=== PATIENT | female | born 1955 | race Caucasian/White ===

== ENCOUNTER 2017-09-23 13:41 | Inpatient (IN) | payer MEDICARE, MEDICAID ==
[~2017-09-23] VITALS: Ht 165.1 cm; Wt 67.9 kg
[~2017-09-23 13:41] MED LIST: ACET-812 PO; ADV50250 IH; ALBU18HF2 IH; CARV3.1289 PO; CLOP75TA35 PO; CYCL-1 PO; CYCL-394 PO; DIPH25CA83 PO; DOCU100C40 PO; GABA-330 PO; INSU100I12 SQ; IPRA3AMP IH; LINA5TAB4 PO; NIF150C PO; NITR0.4T48 SL; NORCO10T PO; NOVRI SQ; OMEP-84 PO; ONDA4TAB6 PO; POLY17PO10 PO; PRAV40TA PO; VENL150C50 PO
[2017-09-23 14:05] LABS: BASOPHILS # (AUTO) 0.1 X10'3 (0-0.2); BASOPHILS % (AUTO) 0.6 % (0-1); EOSINOPHILS # (AUTO) 0.1 X10'3 (0-0.9); EOSINOPHILS % (AUTO) 1.4 % (0-6); HEMATOCRIT 43.1 % (35.0-45.0); HEMOGLOBIN 14.6 g/dl (12.0-16.0); LYMPHOCYTES # (AUTO) 2.9 X10'3 (1.1-4.8); LYMPHOCYTES % (AUTO) 29.3 % (21-51); MEAN CORPUSCULAR HEMOGLOBIN 31.5 PG (27.0-31.0); MEAN CORPUSCULAR HGB CONC 33.9 % (33.0-36.5); MEAN CORPUSCULAR VOLUME 92.9 FL (78-98); MEAN PLATELET VOLUME 8.3 FL (7.4-10.4); MONOCYTES # (AUTO) 0.6 X10'3 (0-0.9); MONOCYTES % (AUTO) 5.7 % (2-12); NEUTROPHILS # (AUTO) 6.2 X10'3 (1.8-7.7); PLATELET COUNT 313 X10'3 (140-440); RED BLOOD COUNT 4.64 X10'6 (4.20-5.60); RED CELL DISTRIBUTION WIDTH 15.4 % (11.5-14.5); WHITE BLOOD COUNT 9.8 X10'3 (4.5-11.0)
[2017-09-23 14:15] LABS: PARTIAL THROMBOPLASTIN TIME 25 SECONDS (22-32); PROTHROMBIN TIME 9.9 SECONDS (9.0-12.0)
[2017-09-23 14:21] LABS: ALANINE AMINOTRANSFERASE 18 U/L (12-78); ALKALINE PHOSPHATASE 79 IU/L (46-116); ANION GAP 9 (8-16); ASPARTATE AMINO TRANSFERASE 25 U/L (10-37); BILIRUBIN,TOTAL 0.3 MG/DL (0.1-1.0); BLOOD UREA NITROGEN 18 MG/DL (7-18); BUN/CREATININE RATIO 16.4 (6.6-38.0); CALCIUM 9.2 MG/DL (8.5-10.1); CHLORIDE 105 MMOL/L (99-107); GLUCOSE 264 MG/DL (70-104); POTASSIUM 4.5 MMOL/L (3.5-5.1); SODIUM 141 MMOL/L (135-145); TOTAL PROTEIN 7.9 G/DL (6.4-8.2); eGFR 50 ML/MIN
[2017-09-23] MEDS ORDERED: aspirin 325mg tablet PO ONE (15:20)
[2017-09-23] MEDS ORDERED: nitroGLYCERIN-Tridil 50MG/D5W 250 ML IV ONE (15:20)
[2017-09-23] MEDS ORDERED: enoxaparin 100mg/ml syringe SUBCUT ONE (15:20)
[2017-09-23] MEDS ORDERED: fentaNYL/PF 50MCG/1 ML 2ML syringe IV ONE (15:35)
[2017-09-23] MEDS ORDERED: ondansetron/PF 4mg/2ml inj IV ONE (15:35)
[2017-09-23] MEDS ORDERED: albuterol 2.5 MG/3 ML nebule NEB PRN (16:15)
[2017-09-23] MEDS ORDERED: magnesium 4gm in 100ml NS 100 ML IV PRN (16:15)
[2017-09-23] MEDS ORDERED: potassium Cl 40MEQ/NS 500ml 500 ML IV PRN ×2 (16:15)
[2017-09-23] MEDS ORDERED: HYDROmorphone 1 mg/ml syringe IV PRN ×2 (16:15)
[2017-09-23] MEDS ORDERED: magnesium Cl slow-release 64mg tablet PO PRN (16:15)
[2017-09-23] MEDS ORDERED: magnesium 2GM in 50ml NS 50 ML IV PRN (16:15)
[2017-09-23] MEDS ORDERED: ondansetron/PF 4mg/2ml inj IV PRN (16:15)
[2017-09-23] MEDS ORDERED: mag hydrox/Alum hydrox/simeth 30ml oral suspension PO PRN (16:15)
[2017-09-23] MEDS ORDERED: acetaminophen 325mg tablet PO PRN (16:15)
[2017-09-23] MEDS ORDERED: magnesium hydroxide 30ml (MOM) UD suspension PO PRN (16:15)
[2017-09-23] MEDS ORDERED: potassium Cl 20 mEq SR tablet PO PRN ×2 (16:15)
[2017-09-23] MEDS ORDERED: ipratropium/albuterol 3ml nebule NEB PRN (16:15)
[2017-09-23] MEDS ORDERED: CARV3.122 PO (17:22)
[2017-09-23] MEDS ORDERED: ACET-812 PO (17:25)
[2017-09-23] MEDS ORDERED: NIT10P (17:31)
[2017-09-23] MEDS ORDERED: METF10002 PO (17:39)
[2017-09-23] MEDS ORDERED: LANTUS SQ (17:39)
[2017-09-23] MEDS ORDERED: INSU100V9 SQ (17:39)
[2017-09-23] MEDS ORDERED: BUDE10.2 (17:47)
[2017-09-23] MEDS ORDERED: BACL10TA PO (17:47)
[2017-09-23] MEDS ORDERED: FURO-150 PO (17:47)
[2017-09-23] MEDS ORDERED: LISI10TA4 PO (17:47)
[2017-09-23 19:45] VITALS: BP 121/62
[2017-09-23] MEDS: carVEDilol 3.125mg tablet PO SCH (19:50)
[2017-09-23] MEDS: gabapentin 400mg capsule PO SCH (19:50)
[2017-09-23] MEDS: normal saline 1000ml 1,000 ML IV SCH (19:51)
[2017-09-23] MEDS: enoxaparin 40mg/0.4ml syringe SUBCUT SCH (20:00)
[2017-09-23] MEDS: enoxaparin 30mg/0.3ml syringe SUBCUT SCH (20:00)
[2017-09-23] MEDS: docusate sod 100mg capsule PO SCH (20:00)
[2017-09-23 21:00] VITALS: BP 115/55
[2017-09-23] MEDS ORDERED: temazepam 15mg capsule PO PRN (21:00)
[2017-09-23] MEDS ORDERED: morphine 4 MG/ML inj SYRINge IV PRN (21:40)
[2017-09-23] MEDS: iron polysaccharide complex 150mg capsule PO SCH (22:32)
[2017-09-23 23:00] VITALS: BP 115/46
[2017-09-24] VITALS (16 sets, daily range): BP systolic 91–156; BP diastolic 33–102
[2017-09-24] MEDS ORDERED: dextrose ORAL solution 15 GM/59 ML bottle PO PRN ×2 (04:20)
[2017-09-24] MEDS ORDERED: MESSAGE TO PHARMACY PO ONE (04:20)
[2017-09-24] MEDS ORDERED: glucagon, human recombinant 1mg kit SUBCUT PRN (04:20)
[2017-09-24] MEDS ORDERED: dextrose 50%-water 50ml dispensing syringe IV PRN ×2 (04:20)
[2017-09-24] MEDS: normal saline 1000ml 1,000 ML IV SCH ×3 (05:31→15:21)
[2017-09-24 05:35] LABS: BASOPHILS # (AUTO) 0.1 X10'3 (0-0.2); BASOPHILS % (AUTO) 0.5 % (0-1); EOSINOPHILS # (AUTO) 0.2 X10'3 (0-0.9); EOSINOPHILS % (AUTO) 1.8 % (0-6); HEMATOCRIT 36.9 % (35.0-45.0); HEMOGLOBIN 12.5 g/dl (12.0-16.0); LYMPHOCYTES # (AUTO) 3.9 X10'3 (1.1-4.8); LYMPHOCYTES % (AUTO) 40.6 % (21-51); MEAN CORPUSCULAR HEMOGLOBIN 31.2 PG (27.0-31.0); MEAN CORPUSCULAR HGB CONC 33.8 % (33.0-36.5); MEAN CORPUSCULAR VOLUME 92.3 FL (78-98); MEAN PLATELET VOLUME 8.3 FL (7.4-10.4); MONOCYTES # (AUTO) 0.8 X10'3 (0-0.9); MONOCYTES % (AUTO) 8.3 % (2-12); NEUTROPHILS # (AUTO) 4.7 X10'3 (1.8-7.7); NEUTROPHILS % (AUTO) 48.8 % (42-75); PLATELET COUNT 268 X10'3 (140-440); RED CELL DISTRIBUTION WIDTH 15.1 % (11.5-14.5); WHITE BLOOD COUNT 9.6 X10'3 (4.5-11.0)
[2017-09-24 06:19] LABS: ALANINE AMINOTRANSFERASE 18 U/L (12-78); ALBUMIN 3.2 G/DL (3.4-5.0); ALKALINE PHOSPHATASE 57 IU/L (46-116); ANION GAP 9 (8-16); ASPARTATE AMINO TRANSFERASE 60 U/L (10-37); BILIRUBIN,TOTAL 0.3 MG/DL (0.1-1.0); BLOOD UREA NITROGEN 16 MG/DL (7-18); BUN/CREATININE RATIO 15.1 (6.6-38.0); CALCIUM 8.4 MG/DL (8.5-10.1); CHLORIDE 108 MMOL/L (99-107); CHOL/HDL RATIO 4.5 (0.00-4.99); CHOLESTEROL 143 MG/DL (0-200); CREATININE 1.06 MG/DL (0.40-0.90); GLUCOSE 175 MG/DL (70-104); HDL CHOLESTEROL 32 MG/DL (35-60); LDL CHOLESTEROL 94 MG/DL (50-100); MAGNESIUM 1.9 MG/DL (1.5-2.4); POTASSIUM 4.4 MMOL/L (3.5-5.1); SODIUM 142 MMOL/L (135-145); TOTAL CARBON DIOXIDE 25.5 MMOL/L (24-32); TOTAL PROTEIN 6.5 G/DL (6.4-8.2); TRIGLYCERIDES 154 MG/DL (20-135); eGFR 52 ML/MIN
[2017-09-24] MEDS: pantoprazole 40mg Tablet.DR PO SCH (07:17)
[2017-09-24] MEDS: gabapentin 400mg capsule PO SCH ×2 (07:17→19:05)
[2017-09-24] MEDS: atorvastatin 10mg tablet PO SCH (07:17)
[2017-09-24] MEDS: iron polysaccharide complex 150mg capsule PO SCH ×2 (07:18→19:05)
[2017-09-24] MEDS: carVEDilol 3.125mg tablet PO SCH ×2 (07:18→19:05)
[2017-09-24] MEDS: linagliptin 5mg tablet PO SCH (07:19)
[2017-09-24] MEDS: venlafaxine XR 75mg capsule (Q24H) PO SCH (07:19)
[2017-09-24] MEDS: enoxaparin 40mg/0.4ml syringe SUBCUT SCH ×2 (07:20→19:06)
[2017-09-24] MEDS: enoxaparin 30mg/0.3ml syringe SUBCUT SCH ×2 (07:20→19:06)
[2017-09-24] MEDS: clopidogrel 75mg tablet PO SCH (07:20)
[2017-09-24] MEDS: docusate sod 100mg capsule PO SCH ×2 (07:20→20:00)
[2017-09-24] MEDS: K and/or MAG REPLACEMENT MC SCH (07:20)
[2017-09-24] MEDS ORDERED: heparin 1,000unit/ml 10ml vial 10 ML ONE (07:34)
[2017-09-24] MEDS ORDERED: iohexol 350MG/ML 100ml bottle IV ONE (07:34)
[2017-09-24] MEDS ORDERED: fentaNYL/PF 50MCG/1 ML 2ML syringe ONE (07:34)
[2017-09-24] MEDS ORDERED: midazolam 2 mg/2 ml injection ONE (07:34)
[2017-09-24] MEDS ORDERED: LIDOcaine 1%/PF (10mg/ml) 5ml vial ONE ×2 (07:34)
[2017-09-24] MEDS ORDERED: iohexol 350 MG/ML 50ML vial IV ONE ×2 (07:35→08:16)
[2017-09-24] MEDS ORDERED: ondansetron/PF 4mg/2ml inj ONE (08:46)
[2017-09-24] MEDS ORDERED: OXAZEpam 15mg capsule PO PRN (09:50)
[2017-09-24] MEDS ORDERED: nitroGLYCERIN 0.4mg SUBLingual tab SL PRN (09:50)
[2017-09-24] MEDS ORDERED: proCHLORperazine 10 MG/2 ml inj IV PRN (09:50)
[2017-09-24] MEDS ORDERED: ondansetron/PF 4mg/2ml inj IV PRN (09:50)
[2017-09-24] MEDS ORDERED: HYDROcodone/acetaminophen 5mg/325mg tablet PO PRN (09:50)
[2017-09-24] MEDS ORDERED: normal saline 1000ml 1,000 ML IV SCH (10:00)
[2017-09-24] MEDS: insulin Lispro (HumaLOG) vial - multi-dose SQ SCH ×2 (13:20→19:12)
[2017-09-24] MEDS: HYDROcodone/acetaminophen 10/325mg tab PO PRN (13:26)
[2017-09-24] MEDS ORDERED: insulin glargine (Lantus) pen - multi-dose SQ SCH (21:00)
[2017-09-25 03:00] VITALS: BP 107/51
[2017-09-25 06:00] VITALS: BP 95/41
[2017-09-25 06:31] LABS: BASOPHILS # (AUTO) 0.2 X10'3 (0-0.2); BASOPHILS % (AUTO) 1.6 % (0-1); EOSINOPHILS # (AUTO) 0.1 X10'3 (0-0.9); EOSINOPHILS % (AUTO) 1.4 % (0-6); HEMATOCRIT 34.4 % (35.0-45.0); HEMOGLOBIN 11.6 g/dl (12.0-16.0); LYMPHOCYTES # (AUTO) 2.8 X10'3 (1.1-4.8); LYMPHOCYTES % (AUTO) 29.7 % (21-51); MEAN CORPUSCULAR HEMOGLOBIN 31.2 PG (27.0-31.0); MEAN CORPUSCULAR HGB CONC 33.8 % (33.0-36.5); MEAN CORPUSCULAR VOLUME 92.5 FL (78-98); MEAN PLATELET VOLUME 8.1 FL (7.4-10.4); MONOCYTES # (AUTO) 0.7 X10'3 (0-0.9); NEUTROPHILS # (AUTO) 5.8 X10'3 (1.8-7.7); NEUTROPHILS % (AUTO) 60.3 % (42-75); PLATELET COUNT 228 X10'3 (140-440); RED BLOOD COUNT 3.72 X10'6 (4.20-5.60); RED CELL DISTRIBUTION WIDTH 14.9 % (11.5-14.5); WHITE BLOOD COUNT 9.6 X10'3 (4.5-11.0)
[2017-09-25 06:44] LABS: ALANINE AMINOTRANSFERASE 22 U/L (12-78); ALBUMIN 2.9 G/DL (3.4-5.0); ALKALINE PHOSPHATASE 51 IU/L (46-116); ANION GAP 7 (8-16); ASPARTATE AMINO TRANSFERASE 25 U/L (10-37); BILIRUBIN,TOTAL 0.5 MG/DL (0.1-1.0); BLOOD UREA NITROGEN 14 MG/DL (7-18); BUN/CREATININE RATIO 12.6 (6.6-38.0); CALCIUM 8.1 MG/DL (8.5-10.1); CHLORIDE 106 MMOL/L (99-107); CREATININE 1.11 MG/DL (0.40-0.90); GLUCOSE 128 MG/DL (70-104); MAGNESIUM 1.7 MG/DL (1.5-2.4); POTASSIUM 4.6 MMOL/L (3.5-5.1); SODIUM 139 MMOL/L (135-145); TOTAL CARBON DIOXIDE 25.8 MMOL/L (24-32); TOTAL PROTEIN 5.9 G/DL (6.4-8.2); eGFR 50 ML/MIN
[2017-09-25] MEDS: K and/or MAG REPLACEMENT MC SCH (08:00)
[2017-09-25] MEDS: enoxaparin 30mg/0.3ml syringe SUBCUT SCH (08:00)
[2017-09-25] MEDS: enoxaparin 40mg/0.4ml syringe SUBCUT SCH (08:00)
[2017-09-25] MEDS: atorvastatin 10mg tablet PO SCH (09:13)
[2017-09-25] MEDS: docusate sod 100mg capsule PO SCH (09:14)
[2017-09-25] MEDS: clopidogrel 75mg tablet PO SCH (09:14)
[2017-09-25] MEDS: venlafaxine XR 75mg capsule (Q24H) PO SCH (09:14)
[2017-09-25] MEDS: linagliptin 5mg tablet PO SCH (09:15)
[2017-09-25] MEDS: pantoprazole 40mg Tablet.DR PO SCH (09:15)
[2017-09-25] MEDS: HYDROcodone/acetaminophen 10/325mg tab PO PRN (09:17)
[2017-09-25] MEDS: gabapentin 400mg capsule PO SCH (09:17)
[2017-09-25] MEDS: iron polysaccharide complex 150mg capsule PO SCH (09:23)
[2017-09-25] MEDS: carVEDilol 3.125mg tablet PO SCH (09:23)
[2017-09-25 11:00] VITALS: BP 99/53
[2017-09-25 15:00] VITALS: BP 94/49
[2017-09-25] MEDS ORDERED: ACET650T78 PO (17:04)
== END 2017-09-25 18:00 | disposition home or self-care (01) | DRG 282 ==
LOC: ER 13:42 → ED HOLD 16:11 → CMPBEDREQ 19:36 → PCU 3S 19:37
PROVIDERS: ADMIT Internal Medicine; ATTEND Internal Medicine
PROC: 4A023N7 Measurement of Cardiac Sampling and Pressure, Left Heart, Percutaneous Approach (ICD-10-PCS; principal; 2017-09-24)
PROC: B2111ZZ Fluoroscopy of Multiple Coronary Arteries using Low Osmolar Contrast (ICD-10-PCS; 2017-09-24)
PROC: B2151ZZ Fluoroscopy of Left Heart using Low Osmolar Contrast (ICD-10-PCS; 2017-09-24)
PROC: B2181ZZ Fluoroscopy of Left Internal Mammary Bypass Graft using Low Osmolar Contrast (ICD-10-PCS; 2017-09-24)
PROC: B2131ZZ Fluoroscopy of Multiple Coronary Artery Bypass Grafts using Low Osmolar Contrast (ICD-10-PCS; 2017-09-24)
DX: I21.4 Non-ST elevation (NSTEMI) myocardial infarction (principal); E11.40 Type 2 diabetes mellitus with diabetic neuropathy, unspecified; E11.65 Type 2 diabetes mellitus with hyperglycemia; I50.9 Heart failure, unspecified; J44.9 Chronic obstructive pulmonary disease, unspecified; I25.10 Atherosclerotic heart disease of native coronary artery without angina pectoris; K21.9 Gastro-esophageal reflux disease without esophagitis; D64.9 Anemia, unspecified; E78.00 Pure hypercholesterolemia, unspecified; E78.5 Hyperlipidemia, unspecified; F32.9 Major depressive disorder, single episode, unspecified; G89.29 Other chronic pain; I11.0 Hypertensive heart disease with heart failure; I08.1 Rheumatic disorders of both mitral and tricuspid valves; N28.9 Disorder of kidney and ureter, unspecified; F17.210 Nicotine dependence, cigarettes, uncomplicated; Z98.1 Arthrodesis status; Z95.1 Presence of aortocoronary bypass graft; Z90.49 Acquired absence of other specified parts of digestive tract; Z79.02 Long term (current) use of antithrombotics/antiplatelets; Z79.4 Long term (current) use of insulin; Z88.6 Allergy status to analgesic agent; Z88.8 Allergy status to other drugs, medicaments and biological substances; Z86.718 Personal history of other venous thrombosis and embolism; Z82.49 Family history of ischemic heart disease and other diseases of the circulatory system; Z83.3 Family history of diabetes mellitus
CPT/HCPCS: 36415; 71046; 80053; 80061; 82948; 83036; 83735; 84484; 85025; 85610; 85730; 87070; 93005; 93306; 93458; 94640; 94760; 96372; 96374; 96375; 99152; 99153; 99285; A4620; A6257; C1760; C1769; J0780; J1644; J1650; J1815; J2001; J2250; J2405; J3010; J3490; J7030; Q9967

== ENCOUNTER 2018-11-25 14:15 | Emergency (ER) | payer MEDICARE, MEDICAID ==
[~2018-11-25] VITALS: Ht 162.6 cm; Wt 72.7 kg
[~2018-11-25 14:15] MED LIST changes: -ACET-812 PO; +ACET650T78 PO; -ADV50250 IH; +BUDE10.2; +CARV3.122 PO; -CARV3.1289 PO; -CYCL-1 PO; -CYCL-394 PO; -DIPH25CA83 PO; -DOCU100C40 PO; +FURO-150 PO; -INSU100I12 SQ; +INSU100V9 SQ; -IPRA3AMP IH; +IPRA3AMP31 IH; +LANTUS SQ; +LISI10TA4 PO; +METF-438 PO; -NIF150C PO; +NIT10P; -ONDA4TAB6 PO; -POLY17PO10 PO
[2018-11-25 15:37] LABS: BASOPHILS # (AUTO) 0.1 X10'3 (0-0.2); BASOPHILS % (AUTO) 1.3 % (0-1); EOSINOPHILS # (AUTO) 0.1 X10'3 (0-0.9); EOSINOPHILS % (AUTO) 0.6 % (0-6); HEMATOCRIT 39.6 % (35.0-45.0); HEMOGLOBIN 13.2 g/dl (12.0-16.0); LYMPHOCYTES # (AUTO) 3.2 X10'3 (1.1-4.8); LYMPHOCYTES % (AUTO) 29.2 % (21-51); MEAN CORPUSCULAR HEMOGLOBIN 32.9 PG (27.0-31.0); MEAN CORPUSCULAR HGB CONC 33.4 g/dL (33.0-36.5); MEAN CORPUSCULAR VOLUME 98.4 FL (78-98); MEAN PLATELET VOLUME 8.3 FL (7.4-10.4); MONOCYTES # (AUTO) 0.7 X10'3 (0-0.9); MONOCYTES % (AUTO) 6.8 % (2-12); NEUTROPHILS # (AUTO) 6.8 X10'3 (1.8-7.7); NEUTROPHILS % (AUTO) 62.1 % (42-75); PLATELET COUNT 309 X10'3 (140-440); RED BLOOD COUNT 4.02 X10'6 (4.20-5.60); RED CELL DISTRIBUTION WIDTH 14.8 % (11.5-14.5); WHITE BLOOD COUNT 10.9 X10'3 (4.5-11.0)
[2018-11-25 15:43] LABS: ALANINE AMINOTRANSFERASE 31 U/L (12-78); ALBUMIN 3.1 G/DL (3.4-5.0); ALBUMIN/GLOBULIN RATIO 0.9 (1.1-1.5); ALKALINE PHOSPHATASE 90 IU/L (46-116); ANION GAP 6 (8-16); ASPARTATE AMINO TRANSFERASE 14 U/L (10-37); BILIRUBIN,TOTAL 0.4 MG/DL (0.1-1.0); BLOOD UREA NITROGEN 20 MG/DL (7-18); BUN/CREATININE RATIO 18.9 (6.6-38.0); CALCIUM 9.3 MG/DL (8.5-10.1); CHLORIDE 104 MMOL/L (99-107); CREATININE 1.06 MG/DL (0.40-0.90); GLUCOSE 146 MG/DL (70-104); POTASSIUM 3.7 MMOL/L (3.5-5.1); SODIUM 138 MMOL/L (135-145); TOTAL CARBON DIOXIDE 28.5 MMOL/L (24-32); TOTAL PROTEIN 6.7 G/DL (6.4-8.2); eGFR 52 ML/MIN
[2018-11-25 15:47] LABS: PARTIAL THROMBOPLASTIN TIME 24 SECONDS (22-32); PROTHROMBIN TIME 10.4 SECONDS (9.0-12.0)
[2018-11-25] MEDS ORDERED: ipratropium/albuterol 3ml nebule NEB ONE (18:15)
[2018-11-25] MEDS ORDERED: furosemide 10 MG/1 ML 10ml inj IV ONE (18:15)
[2018-11-25] MEDS ORDERED: albuterol 2.5 MG/3 ML nebule NEB ONE (18:15)
[2018-11-25] MEDS ORDERED: methylPREDNISolone sod succ 125mg/2ml vial IV ONE (18:15)
--- NOTE | 2018-11-25 19:27 | NUR ---
respiratory therapy in room and giving albuterol and atrovent nebulizer
--- NOTE | 2018-11-25 19:29 | NUR ---
patient still smokes about half a pack a day
[2018-11-25] MEDS ORDERED: FURO-150 PO (19:49)
[2018-11-25] MEDS ORDERED: PRED20TA PO (19:49)
[2018-11-25] MEDS ORDERED: ALBU18HF2 INH (19:49)
[2018-11-25 20:19] VITALS: BP 141/87
== END 2018-11-25 20:26 | disposition home or self-care (01) ==
LOC: ER 14:16
DX: J44.1 Chronic obstructive pulmonary disease with (acute) exacerbation (principal); I50.9 Heart failure, unspecified; I11.0 Hypertensive heart disease with heart failure; I25.10 Atherosclerotic heart disease of native coronary artery without angina pectoris; E78.00 Pure hypercholesterolemia, unspecified; J44.9 Chronic obstructive pulmonary disease, unspecified; E11.9 Type 2 diabetes mellitus without complications; G89.29 Other chronic pain; F17.200 Nicotine dependence, unspecified, uncomplicated; Z90.49 Acquired absence of other specified parts of digestive tract; Z95.0 Presence of cardiac pacemaker; Z98.890 Other specified postprocedural states; Z88.6 Allergy status to analgesic agent; Z88.5 Allergy status to narcotic agent; Z79.4 Long term (current) use of insulin; Z79.899 Other long term (current) drug therapy
CPT/HCPCS: 36415; 71045; 80053; 84484; 85025; 85610; 85730; 93005; 94640; 94760; 96374; 96375; 99284; J1940; J2930

== ENCOUNTER 2018-11-27 12:00 | Inpatient (IN) | payer MEDICARE, MEDICAID ==
[~2018-11-27] VITALS: Ht 162.6 cm; Wt 72.0 kg
[~2018-11-27 12:00] MED LIST changes: +ALBU18HF2 INH; +PRED20TA PO
--- NOTE | 2018-11-27 12:44 | NUR ---
dr. wright at bedside.
[2018-11-27] MEDS ORDERED: ipratropium/albuterol 3ml nebule NEB ONE (12:50)
[2018-11-27] MEDS ORDERED: levoFLOXACIN-Levaquin 750MG/D5 150 ML IV ONE (12:50)
--- NOTE | 2018-11-27 12:58 | NUR ---
SPUTUM SAMPLE SENT TO LAB.
[2018-11-27] MEDS ORDERED: methylPREDNISolone sod succ 125mg/2ml vial IV ONE (13:00)
[2018-11-27 13:26] LABS: BASOPHILS # (AUTO) 0.1 X10'3 (0-0.2); BASOPHILS % (AUTO) 0.6 % (0-1); EOSINOPHILS % (AUTO) 0.2 % (0-6); HEMOGLOBIN 14.2 g/dl (12.0-16.0); LYMPHOCYTES # (AUTO) 3.2 X10'3 (1.1-4.8); MEAN CORPUSCULAR HEMOGLOBIN 32.7 PG (27.0-31.0); MEAN CORPUSCULAR HGB CONC 33.1 g/dL (33.0-36.5); MEAN CORPUSCULAR VOLUME 98.9 FL (78-98); MEAN PLATELET VOLUME 8.2 FL (7.4-10.4); MONOCYTES % (AUTO) 5.1 % (2-12); NEUTROPHILS # (AUTO) 15.8 X10'3 (1.8-7.7); NEUTROPHILS % (AUTO) 78.1 % (42-75); PLATELET COUNT 336 X10'3 (140-440); RED BLOOD COUNT 4.34 X10'6 (4.20-5.60); RED CELL DISTRIBUTION WIDTH 14.7 % (11.5-14.5); WHITE BLOOD COUNT 20.2 X10'3 (4.5-11.0)
[2018-11-27 13:39] LABS: PARTIAL THROMBOPLASTIN TIME 23 SECONDS (22-32)
[2018-11-27 13:45] LABS: ALANINE AMINOTRANSFERASE 51 U/L (12-78); ALBUMIN 3.6 G/DL (3.4-5.0); ALBUMIN/GLOBULIN RATIO 0.9 (1.1-1.5); ALKALINE PHOSPHATASE 99 IU/L (46-116); ANION GAP 7 (8-16); ASPARTATE AMINO TRANSFERASE 37 U/L (10-37); BILIRUBIN,TOTAL 0.6 MG/DL (0.1-1.0); BLOOD UREA NITROGEN 22 MG/DL (7-18); BUN/CREATININE RATIO 18.6 (6.6-38.0); CALCIUM 9.7 MG/DL (8.5-10.1); CHLORIDE 102 MMOL/L (99-107); CREATININE 1.18 MG/DL (0.40-0.90); GLUCOSE 359 MG/DL (70-104); LIPASE 188 U/L (73-393); POTASSIUM 4.2 MMOL/L (3.5-5.1); SODIUM 138 MMOL/L (135-145); TOTAL CARBON DIOXIDE 29.3 MMOL/L (24-32); TOTAL PROTEIN 7.5 G/DL (6.4-8.2); eGFR 46 ML/MIN
[2018-11-27 14:11] LABS: URINE HCG NEGATIVE (NEG)
[2018-11-27 14:13] LABS: CLARITY,URINE CLEAR (Clear); COLOR,URINE YELLOW (Yellow); GLUCOSE, URINE >=1000 mg/dl (Neg); KETONES,URINE NEGATIVE (Neg); LEUKOCYTE ESTERASE ,URINE NEGATIVE (Neg); NITRITES, URINE NEGATIVE (Neg); OCCULT BLOOD,URINE TRACE-INTACT (Neg); PROTEIN,URINE 100 mg/dl (Neg); UROBILINOGEN,URINE 0.2 E.U/dL (0.2-1.0)
[2018-11-27 14:16] LABS: UA COLLECTION TYPE VOIDED
[2018-11-27] MEDS ORDERED: ondansetron/PF 4mg/2ml inj IV ONE (14:25)
[2018-11-27 14:35] LABS: BACTERIA,URINE FEW /HPF (Neg); RBC,URINE NONE SEEN /HPF (0-2); SQUAMOUS EPITHELIAL CELL,UR MODERATE /LPF (FEW); WBC,URINE 0-4 /HPF (0-4)
[2018-11-27 14:36] LABS: YEAST MODERATE /HPF (NEGATIVE)
[2018-11-27] MEDS ORDERED: diphenhydrAMINE 50 mg/ml inj IV ONE (14:55)
--- NOTE | 2018-11-27 14:56 | NUR ---
Pt has localized redness and itching above PIV site. Levaquin stopped and benadryl IVP ordered by LLUVIA.
[2018-11-27] MEDS ORDERED: CefTRIAXone/D5W-Rocephin 1gm 50 ML IV ONE (15:00)
[2018-11-27] MEDS ORDERED: acetaminophen 325mg tablet PO PRN (15:40)
[2018-11-27] MEDS ORDERED: potassium Cl 40MEQ/NS 500ml 500 ML IV PRN ×2 (15:40)
[2018-11-27] MEDS ORDERED: magnesium 4gm in 100ml NS 100 ML IV PRN (15:40)
[2018-11-27] MEDS: K and/or MAG REPLACEMENT MC SCH (15:40)
[2018-11-27] MEDS ORDERED: magnesium Cl slow-release 64mg tablet PO PRN (15:40)
[2018-11-27] MEDS ORDERED: magnesium 2GM in 50ml NS 50 ML IV PRN (15:40)
[2018-11-27] MEDS ORDERED: potassium Cl 20 mEq SR tablet PO PRN ×2 (15:40)
[2018-11-27] MEDS ORDERED: ondansetron/PF 4mg/2ml inj IV PRN (15:40)
[2018-11-27] MEDS ORDERED: mag hydrox/Alum hydrox/simeth 30ml oral suspension PO PRN (15:40)
[2018-11-27] MEDS ORDERED: guaiFENesin 200 MG/10 ML oral syrup UD cup PO PRN (15:45)
[2018-11-27] MEDS ORDERED: dextrose ORAL solution 15 GM/59 ML bottle PO PRN (15:50)
[2018-11-27] MEDS ORDERED: glucagon, human recombinant 1mg kit SUBCUT PRN (15:50)
[2018-11-27] MEDS ORDERED: dextrose 50%-water 50ml dispensing syringe IV PRN ×2 (15:50)
[2018-11-27] MEDS ORDERED: MESSAGE TO PHARMACY PO ONE (15:50)
[2018-11-27 16:24] LABS: HEMOGLOBIN A1C 9.6 % (4.5-6.2)
[2018-11-27] MEDS: pantoprazole 40mg Tablet.DR PO SCH (16:32)
[2018-11-27] MEDS: clopidogrel 75mg tablet PO SCH (16:32)
[2018-11-27] MEDS: furosemide 20 MG/2 ML vial IV SCH ×2 (16:33→21:59)
[2018-11-27] MEDS: azithromycin/NS 500mg/250ml 250 ML IV SCH (16:37)
[2018-11-27] MEDS: nitroGLYCERIN 0.2mg/hour patch TD SCH (16:38)
--- NOTE | 2018-11-27 17:00 | NUR ---
biometrics technician at bedside for study as ordered.
[2018-11-27] MEDS ORDERED: OMEP40CA37 PO (17:48)
[2018-11-27] MEDS ORDERED: POTA10CA44 PO (17:48)
[2018-11-27] MEDS ORDERED: METR-159 PO (17:48)
[2018-11-27] MEDS ORDERED: HYDR-4353 PO (17:48)
[2018-11-27] MEDS ORDERED: BACL10TA PO (17:48)
[2018-11-27 18:00] VITALS: BP 125/73
[2018-11-27] MEDS: ipratropium/albuterol 3ml nebule NEB SCH ×2 (19:09→23:04)
[2018-11-27] MEDS: insulin Lispro (HumaLOG) vial - multi-dose SQ SCH ×2 (19:51→22:10)
[2018-11-27] MEDS ORDERED: insulin glargine (Lantus) pen - multi-dose SQ SCH (21:00)
[2018-11-27] MEDS: docusate sod 100mg capsule PO SCH (21:59)
[2018-11-27] MEDS: metoprolol tartrate 12.5mg (1/2 tablet) PO SCH (21:59)
[2018-11-27] MEDS: methylPREDNISolone sod succ 125mg/2ml vial IV SCH (22:01)
[2018-11-27] MEDS: heparin, porcine 5000 units/ml vial SQ SCH (22:06)
[2018-11-28] VITALS: BP 132/53
[2018-11-28] MEDS: HYDROcodone/acetaminophen 5mg/325mg tablet PO PRN ×2 (00:26→17:00)
[2018-11-28] MEDS: ipratropium/albuterol 3ml nebule NEB SCH ×6 (03:32→23:21)
[2018-11-28] MEDS: methylPREDNISolone sod succ 125mg/2ml vial IV SCH ×3 (03:42→17:00)
[2018-11-28 05:34] LABS: BASOPHILS % (AUTO) 0 % (0-1); EOSINOPHILS % (AUTO) 0 % (0-6); HEMATOCRIT 37.9 % (35.0-45.0); HEMOGLOBIN 12.8 g/dl (12.0-16.0); LYMPHOCYTES # (AUTO) 1.1 X10'3 (1.1-4.8); MEAN CORPUSCULAR HEMOGLOBIN 33.2 PG (27.0-31.0); MEAN CORPUSCULAR HGB CONC 33.6 g/dL (33.0-36.5); MEAN CORPUSCULAR VOLUME 98.8 FL (78-98); MEAN PLATELET VOLUME 8.5 FL (7.4-10.4); MONOCYTES # (AUTO) 0.2 X10'3 (0-0.9); MONOCYTES % (AUTO) 1.5 % (2-12); NEUTROPHILS # (AUTO) 13.8 X10'3 (1.8-7.7); NEUTROPHILS % (AUTO) 91.5 % (42-75); PLATELET COUNT 278 X10'3 (140-440); RED BLOOD COUNT 3.84 X10'6 (4.20-5.60); WHITE BLOOD COUNT 15.1 X10'3 (4.5-11.0)
[2018-11-28 05:39] LABS: ALBUMIN 3.2 G/DL (3.4-5.0); ANION GAP 8 (8-16); BLOOD UREA NITROGEN 29 MG/DL (7-18); BUN/CREATININE RATIO 21.3 (6.6-38.0); CHLORIDE 98 MMOL/L (99-107); CREATININE 1.36 MG/DL (0.40-0.90); GLUCOSE 399 MG/DL (70-104); MAGNESIUM 1.7 MG/DL (1.5-2.4); POTASSIUM 4.2 MMOL/L (3.5-5.1); SODIUM 133 MMOL/L (135-145); TOTAL CARBON DIOXIDE 26.6 MMOL/L (24-32); eGFR 39 ML/MIN
--- NOTE | 2018-11-28 06:52 | NUR ---
Problems reprioritized. Patient report given, questions answered & plan of care reviewed with HAILEY MEJIA.
[2018-11-28 07:00] VITALS: BP 146/70
[2018-11-28] MEDS ORDERED: lisinopril 2.5mg tablet PO SCH (08:00)
[2018-11-28] MEDS: K and/or MAG REPLACEMENT MC SCH (08:00)
[2018-11-28] MEDS: pantoprazole 40mg Tablet.DR PO SCH (09:13)
[2018-11-28] MEDS: docusate sod 100mg capsule PO SCH ×2 (09:13→20:29)
[2018-11-28] MEDS: metoprolol tartrate 12.5mg (1/2 tablet) PO SCH (09:13)
[2018-11-28] MEDS: clopidogrel 75mg tablet PO SCH (09:13)
[2018-11-28] MEDS: heparin, porcine 5000 units/ml vial SQ SCH ×2 (09:14→20:33)
[2018-11-28] MEDS: CefTRIAXone/D5W-Rocephin 1gm 50 ML IV SCH (09:15)
[2018-11-28] MEDS: nicotine 21mg patch - 24 hr TD SCH (09:15)
[2018-11-28] MEDS: furosemide 20 MG/2 ML vial IV SCH ×2 (09:15→20:34)
[2018-11-28] MEDS: insulin Lispro (HumaLOG) vial - multi-dose SQ SCH ×3 (10:46→20:45)
[2018-11-28] MEDS ORDERED: ipratropium/albuterol 3ml nebule NEB PRN (10:50)
[2018-11-28] MEDS ORDERED: nitroGLYCERIN 0.4mg SUBLingual tab SL PRN (10:50)
[2018-11-28 11:00] VITALS: BP 130/67
[2018-11-28] MEDS: venlafaxine XR 75mg capsule (Q24H) PO SCH (12:28)
[2018-11-28] MEDS: insulin glargine (Lantus) pen - multi-dose SQ SCH ×2 (12:32→20:47)
--- NOTE | 2018-11-28 15:13 | NUR ---
DM Consult: Pt admit w/ acute COPD exacerbation and PNA hx T2DM A1C 9.6 and heart failure EF 35-40%. Pt seen by RD for written/verbal DM ed w/ RD contact information provided. GLU 483 started on solumedrol w/ Lantus started one time at lunch and to start HS today per RN. PO 75% avg heart healthy/carb controlled diet meeting needs. LBM 11/27. Will continue to monitor. Rec: 1. continue heart healthy/carb controlled diet 2. monitor for ONS needs 3. wt per rx Addendum: 11/28/18 at [address] Amended: Links added.
[2018-11-28] MEDS: azithromycin/NS 500mg/250ml 250 ML IV SCH (17:00)
[2018-11-28] MEDS: nitroGLYCERIN 0.2mg/hour patch TD SCH (17:00)
--- NOTE | 2018-11-28 18:37 | NUR ---
Problems reprioritized. Patient report given, questions answered & plan of care reviewed with vicky walsh.
--- NOTE | 2018-11-28 18:45 | NUR ---
Patient in room [facility]FFANY 360. I have received report from Felicity MEJIA and had the opportunity to ask questions and assume patient care. Pt sitting up in bed with two guests at bedside. No signs of distress, will continue to monitor.
[2018-11-28 20:00] VITALS: BP 105/47
[2018-11-28] MEDS: gabapentin 400mg capsule PO SCH (20:30)
[2018-11-28] MEDS: lactobacillus rhamnosus 10,000 MMU CELLS/CAPSULE PO SCH (20:30)
[2018-11-28] MEDS: carVEDilol 3.125mg tablet PO SCH (20:30)
[2018-11-28 23:37] VITALS: BP 114/56
[2018-11-29] MEDS: methylPREDNISolone sod succ 125mg/2ml vial IV SCH ×3 (01:01→15:26)
[2018-11-29] MEDS: HYDROcodone/acetaminophen 5mg/325mg tablet PO PRN ×3 (01:01→20:54)
[2018-11-29] MEDS: ipratropium/albuterol 3ml nebule NEB SCH ×5 (03:23→20:42)
[2018-11-29 06:18] LABS: BASOPHILS % (AUTO) 0 % (0-1); EOSINOPHILS % (AUTO) 0 % (0-6); HEMATOCRIT 39.5 % (35.0-45.0); HEMOGLOBIN 13.1 g/dl (12.0-16.0); LYMPHOCYTES # (AUTO) 1.6 X10'3 (1.1-4.8); LYMPHOCYTES % (AUTO) 7.7 % (21-51); MEAN CORPUSCULAR HEMOGLOBIN 32.6 PG (27.0-31.0); MEAN CORPUSCULAR HGB CONC 33.1 g/dL (33.0-36.5); MEAN CORPUSCULAR VOLUME 98.6 FL (78-98); MEAN PLATELET VOLUME 8.3 FL (7.4-10.4); MONOCYTES # (AUTO) 0.5 X10'3 (0-0.9); MONOCYTES % (AUTO) 2.4 % (2-12); NEUTROPHILS # (AUTO) 18.2 X10'3 (1.8-7.7); NEUTROPHILS % (AUTO) 89.9 % (42-75); PLATELET COUNT 315 X10'3 (140-440); RED CELL DISTRIBUTION WIDTH 14.8 % (11.5-14.5); WHITE BLOOD COUNT 20.2 X10'3 (4.5-11.0)
--- NOTE | 2018-11-29 06:25 | NUR ---
Patient in room [facility]FF[facility] 360. I have received report from Bindu MEJIA and had the opportunity to ask questions and assume patient care.
[2018-11-29 06:30] LABS: ALBUMIN 3.3 G/DL (3.4-5.0); ANION GAP 5 (8-16); BLOOD UREA NITROGEN 37 MG/DL (7-18); BUN/CREATININE RATIO 29.4 (6.6-38.0); CALCIUM 9.1 MG/DL (8.5-10.1); CHLORIDE 96 MMOL/L (99-107); CREATININE 1.26 MG/DL (0.40-0.90); GLUCOSE 95 MG/DL (70-104); MAGNESIUM 1.8 MG/DL (1.5-2.4); POTASSIUM 3.7 MMOL/L (3.5-5.1); SODIUM 132 MMOL/L (135-145); TOTAL CARBON DIOXIDE 30.9 MMOL/L (24-32); eGFR 43 ML/MIN
--- NOTE | 2018-11-29 06:45 | NUR ---
Problems reprioritized. Patient report given, questions answered & plan of care reviewed with Susana MEJIA.
[2018-11-29 08:00] VITALS: BP 118/59
[2018-11-29] MEDS: K and/or MAG REPLACEMENT MC SCH (08:00)
[2018-11-29] MEDS ORDERED: clopidogrel 75mg tablet PO SCH (08:00)
[2018-11-29] MEDS: atorvastatin 10mg tablet PO SCH (08:15)
[2018-11-29] MEDS: nicotine 21mg patch - 24 hr TD SCH (08:15)
[2018-11-29] MEDS: venlafaxine XR 75mg capsule (Q24H) PO SCH (08:16)
[2018-11-29] MEDS: clopidogrel 75mg tablet PO SCH (08:16)
[2018-11-29] MEDS: lisinopril 10 MG tablet PO SCH (08:16)
[2018-11-29] MEDS: carVEDilol 3.125mg tablet PO SCH ×2 (08:17→20:54)
[2018-11-29] MEDS: lactobacillus rhamnosus 10,000 MMU CELLS/CAPSULE PO SCH ×2 (08:17→20:54)
[2018-11-29] MEDS: docusate sod 100mg capsule PO SCH ×2 (08:17→20:54)
[2018-11-29] MEDS: gabapentin 400mg capsule PO SCH ×2 (08:17→20:54)
[2018-11-29] MEDS: heparin, porcine 5000 units/ml vial SQ SCH ×2 (08:18→21:02)
[2018-11-29] MEDS: furosemide 20 MG/2 ML vial IV SCH ×2 (08:18→20:55)
[2018-11-29] MEDS: pantoprazole 40mg Tablet.DR PO SCH (08:46)
[2018-11-29] MEDS: CefTRIAXone/D5W-Rocephin 1gm 50 ML IV SCH (08:48)
[2018-11-29] MEDS: insulin glargine (Lantus) pen - multi-dose SQ SCH ×2 (09:35→21:08)
[2018-11-29] MEDS: insulin Lispro (HumaLOG) vial - multi-dose SQ SCH ×4 (09:36→21:07)
[2018-11-29 11:00] VITALS: BP 123/59
--- NOTE | 2018-11-29 13:30 | NUR ---
Talked about the signs and symptoms of hypoglycemia with the patient.
[2018-11-29] MEDS: azithromycin/NS 500mg/250ml 250 ML IV SCH (15:25)
[2018-11-29] MEDS: nitroGLYCERIN 0.2mg/hour patch TD SCH (15:26)
[2018-11-29] MEDS: DOXYCYCLINE 100MG CAPSULE PO SCH ×2 (17:02→23:00)
[2018-11-29] MEDS: levoFLOXACIN-Levaquin 750MG/D5 150 ML IV SCH (17:02)
[2018-11-29] MEDS: dextrose ORAL solution 15 GM/59 ML bottle PO PRN (17:36)
--- NOTE | 2018-11-29 18:51 | NUR ---
Patient in room [facility] 360. I have received report from Susana MEJIA and had the opportunity to ask questions and assume patient care.
[2018-11-29 20:12] VITALS: BP 105/46
[2018-11-30] MEDS: ipratropium/albuterol 3ml nebule NEB SCH ×7 (00:04→23:32)
[2018-11-30 00:24] VITALS: BP 104/50
[2018-11-30 05:31] LABS: BASOPHILS % (AUTO) 0.1 % (0-1); EOSINOPHILS % (AUTO) 0 % (0-6); HEMATOCRIT 39.6 % (35.0-45.0); HEMOGLOBIN 13.1 g/dl (12.0-16.0); LYMPHOCYTES # (AUTO) 2.1 X10'3 (1.1-4.8); LYMPHOCYTES % (AUTO) 12.6 % (21-51); MEAN CORPUSCULAR VOLUME 99.9 FL (78-98); MEAN PLATELET VOLUME 8.4 FL (7.4-10.4); MONOCYTES # (AUTO) 1.1 X10'3 (0-0.9); MONOCYTES % (AUTO) 6.9 % (2-12); NEUTROPHILS # (AUTO) 13.1 X10'3 (1.8-7.7); NEUTROPHILS % (AUTO) 80.4 % (42-75); PLATELET COUNT 294 X10'3 (140-440); RED BLOOD COUNT 3.97 X10'6 (4.20-5.60); RED CELL DISTRIBUTION WIDTH 14.6 % (11.5-14.5); WHITE BLOOD COUNT 16.3 X10'3 (4.5-11.0)
[2018-11-30 05:35] LABS: ALBUMIN 2.9 G/DL (3.4-5.0); ANION GAP 6 (8-16); BLOOD UREA NITROGEN 39 MG/DL (7-18); BUN/CREATININE RATIO 27.5 (6.6-38.0); CALCIUM 8.7 MG/DL (8.5-10.1); CHLORIDE 99 MMOL/L (99-107); CREATININE 1.42 MG/DL (0.40-0.90); GLUCOSE 134 MG/DL (70-104); MAGNESIUM 1.9 MG/DL (1.5-2.4); POTASSIUM 4.1 MMOL/L (3.5-5.1); SODIUM 136 MMOL/L (135-145); TOTAL CARBON DIOXIDE 31.2 MMOL/L (24-32); eGFR 37 ML/MIN
--- NOTE | 2018-11-30 06:02 | NUR ---
Problems reprioritized. Patient report given, questions answered & plan of care reviewed with Susana MEJIA.
--- NOTE | 2018-11-30 06:36 | NUR ---
Patient in room TIFFANY 360A. I have received report from Bindu MEJIA and had the opportunity to ask questions and assume patient care with Susana MEJIA.
--- NOTE | 2018-11-30 06:37 | NUR ---
Patient in room [facility]FF[facility] 360. I have received report from Bindu MEJIA and had the opportunity to ask questions and assume patient care.
[2018-11-30] MEDS: heparin, porcine 5000 units/ml vial SQ SCH ×2 (07:34→19:48)
[2018-11-30] MEDS: furosemide 20 MG/2 ML vial IV SCH (07:34)
[2018-11-30] MEDS: nicotine 21mg patch - 24 hr TD SCH (07:35)
[2018-11-30] MEDS: docusate sod 100mg capsule PO SCH ×2 (07:35→19:47)
[2018-11-30] MEDS: pantoprazole 40mg Tablet.DR PO SCH (07:36)
[2018-11-30] MEDS: clopidogrel 75mg tablet PO SCH (07:36)
[2018-11-30] MEDS: venlafaxine XR 75mg capsule (Q24H) PO SCH (07:36)
[2018-11-30] MEDS: carVEDilol 3.125mg tablet PO SCH (07:36)
[2018-11-30] MEDS: lactobacillus rhamnosus 10,000 MMU CELLS/CAPSULE PO SCH ×2 (07:37→19:47)
[2018-11-30] MEDS: gabapentin 400mg capsule PO SCH ×2 (07:37→19:47)
[2018-11-30] MEDS: lisinopril 10 MG tablet PO SCH (07:37)
[2018-11-30] MEDS: atorvastatin 10mg tablet PO SCH (07:37)
[2018-11-30 08:00] VITALS: BP 118/74
[2018-11-30] MEDS: K and/or MAG REPLACEMENT MC SCH (08:00)
[2018-11-30] MEDS ORDERED: prednisone 10mg tablet PO SCH (08:30)
[2018-11-30] MEDS: insulin glargine (Lantus) pen - multi-dose SQ SCH ×2 (08:57→20:27)
[2018-11-30] MEDS: insulin Lispro (HumaLOG) vial - multi-dose SQ SCH ×2 (08:59→19:02)
[2018-11-30] MEDS: DOXYCYCLINE 100MG CAPSULE PO SCH ×2 (09:09→17:12)
[2018-11-30] MEDS: HYDROcodone/acetaminophen 5mg/325mg tablet PO PRN ×2 (09:14→22:02)
[2018-11-30 11:00] VITALS: BP 110/105
[2018-11-30] MEDS: dextrose ORAL solution 15 GM/59 ML bottle PO PRN (12:08)
--- NOTE | 2018-11-30 12:10 | NUR ---
Patient's bedside glucose was 46, and dextrose oral solution was given. Patient stated that she wasn't feeling any hypoglycemia symptoms.
--- NOTE | 2018-11-30 12:16 | NUR ---
Notified by jossue CHENG of low BS of 46. Waiting for orders if to go forward with DC home.
--- NOTE | 2018-11-30 12:21 | NUR ---
BS drop to 48, treating patient for hypoglycemia per protocol. Will continue in evaluating patient before discharge order is completed. Will continue to monitor patient until BS is stable and able to be discharged.
--- NOTE | 2018-11-30 12:36 | NUR ---
Notified by tele patient had a [address] Moura aware. Patients discharge has been discontinued. putting in new orders.
--- NOTE | 2018-11-30 12:38 | NUR ---
Patient moved back to a level 2 on protocol.
[2018-11-30] MEDS ORDERED: magnesium hydroxide 30ml (MOM) UD suspension PO ONE (13:20)
[2018-11-30] MEDS: nitroGLYCERIN 0.2mg/hour patch TD SCH (14:36)
--- NOTE | 2018-11-30 18:18 | NUR ---
Problems reprioritized. Patient report given, questions answered & plan of care reviewed with Bindu MEJIA.
--- NOTE | 2018-11-30 18:22 | NUR ---
Problems reprioritized. Patient report given, questions answered & plan of care reviewed with Bindu MEJIA.
--- NOTE | 2018-11-30 18:25 | NUR ---
Patient in room [facility] 360. I have received report from Susana MEJIA and had the opportunity to ask questions and assume patient care.
[2018-11-30] MEDS: carvedilol 6.25mg tablet PO SCH (19:47)
[2018-11-30 20:00] VITALS: BP 118/57
[2018-12-01] VITALS: BP 106/51
[2018-12-01] MEDS: ipratropium/albuterol 3ml nebule NEB SCH ×6 (02:42→23:52)
[2018-12-01 04:55] LABS: BASOPHILS # (AUTO) 0.1 X10'3 (0-0.2); BASOPHILS % (AUTO) 0.5 % (0-1); EOSINOPHILS # (AUTO) 0.1 X10'3 (0-0.9); EOSINOPHILS % (AUTO) 0.6 % (0-6); HEMATOCRIT 39.6 % (35.0-45.0); HEMOGLOBIN 13.1 g/dl (12.0-16.0); LYMPHOCYTES # (AUTO) 4.3 X10'3 (1.1-4.8); MEAN CORPUSCULAR HEMOGLOBIN 32.6 PG (27.0-31.0); MEAN CORPUSCULAR VOLUME 98.6 FL (78-98); MEAN PLATELET VOLUME 8.4 FL (7.4-10.4); MONOCYTES # (AUTO) 1.8 X10'3 (0-0.9); MONOCYTES % (AUTO) 11.1 % (2-12); NEUTROPHILS # (AUTO) 9.7 X10'3 (1.8-7.7); NEUTROPHILS % (AUTO) 60.8 % (42-75); PLATELET COUNT 276 X10'3 (140-440); RED BLOOD COUNT 4.01 X10'6 (4.20-5.60); RED CELL DISTRIBUTION WIDTH 14.7 % (11.5-14.5); WHITE BLOOD COUNT 15.9 X10'3 (4.5-11.0)
[2018-12-01 05:21] LABS: ALBUMIN 2.8 G/DL (3.4-5.0); ANION GAP 3 (8-16); BLOOD UREA NITROGEN 34 MG/DL (7-18); BUN/CREATININE RATIO 28.3 (6.6-38.0); CALCIUM 8.2 MG/DL (8.5-10.1); CHLORIDE 102 MMOL/L (99-107); GLUCOSE 116 MG/DL (70-104); POTASSIUM 3.8 MMOL/L (3.5-5.1); SODIUM 138 MMOL/L (135-145); TOTAL CARBON DIOXIDE 33.1 MMOL/L (24-32); eGFR 45 ML/MIN
--- NOTE | 2018-12-01 06:31 | NUR ---
Problems reprioritized. Patient report given, questions answered & plan of care reviewed with Elaine MEJIA.
[2018-12-01] MEDS: dextrose ORAL solution 15 GM/59 ML bottle PO PRN (07:39)
[2018-12-01 08:00] VITALS: BP 209/123
[2018-12-01] MEDS: insulin glargine (Lantus) pen - multi-dose SQ SCH (08:00)
[2018-12-01] MEDS: K and/or MAG REPLACEMENT MC SCH (08:00)
[2018-12-01] MEDS: furosemide 20 MG/2 ML vial IV SCH (08:04)
[2018-12-01] MEDS: docusate sod 100mg capsule PO SCH ×2 (08:05→21:53)
[2018-12-01] MEDS: DOXYCYCLINE 100MG CAPSULE PO SCH (08:05)
[2018-12-01] MEDS: nicotine 21mg patch - 24 hr TD SCH (08:07)
[2018-12-01] MEDS: gabapentin 400mg capsule PO SCH ×2 (08:08→21:52)
[2018-12-01] MEDS: atorvastatin 10mg tablet PO SCH (08:10)
[2018-12-01] MEDS: carvedilol 6.25mg tablet PO SCH ×2 (08:11→21:51)
[2018-12-01] MEDS: clopidogrel 75mg tablet PO SCH (08:11)
[2018-12-01] MEDS: lactobacillus rhamnosus 10,000 MMU CELLS/CAPSULE PO SCH ×2 (08:11→21:51)
[2018-12-01] MEDS: pantoprazole 40mg Tablet.DR PO SCH (08:11)
[2018-12-01] MEDS: heparin, porcine 5000 units/ml vial SQ SCH ×2 (08:12→21:53)
[2018-12-01] MEDS: venlafaxine XR 75mg capsule (Q24H) PO SCH (08:14)
[2018-12-01] MEDS: lisinopril 2.5mg tablet PO SCH (08:16)
[2018-12-01] MEDS: levoFLOXACIN-Levaquin 750MG/D5 150 ML IV SCH (08:23)
[2018-12-01] MEDS ORDERED: predniSONE 20 mg tablet PO SCH (08:30)
[2018-12-01 08:45] VITALS: BP 101/53
[2018-12-01 11:00] VITALS: BP 98/52
[2018-12-01] MEDS: insulin Lispro (HumaLOG) vial - multi-dose SQ SCH ×3 (13:34→21:26)
[2018-12-01 15:43] VITALS: BP 116/65
[2018-12-01] MEDS: nitroGLYCERIN 0.2mg/hour patch TD SCH (15:43)
[2018-12-01] MEDS: HYDROcodone/acetaminophen 5mg/325mg tablet PO PRN (15:53)
--- NOTE | 2018-12-01 19:13 | NUR ---
Problems reprioritized. Patient report given, questions answered & plan of care reviewed with ELLIOT MEJIA.
[2018-12-01 20:00] VITALS: BP 99/52
[2018-12-01] MEDS ORDERED: insulin glargine (Lantus) pen - multi-dose SQ SCH (21:00)
[2018-12-02] VITALS: BP 100/54
[2018-12-02] MEDS: ipratropium/albuterol 3ml nebule NEB SCH ×5 (03:27→15:19)
[2018-12-02 04:50] LABS: BASOPHILS # (AUTO) 0.1 X10'3 (0-0.2); BASOPHILS % (AUTO) 0.9 % (0-1); EOSINOPHILS # (AUTO) 0.1 X10'3 (0-0.9); EOSINOPHILS % (AUTO) 0.9 % (0-6); HEMATOCRIT 41.2 % (35.0-45.0); HEMOGLOBIN 13.5 g/dl (12.0-16.0); LYMPHOCYTES # (AUTO) 4.7 X10'3 (1.1-4.8); LYMPHOCYTES % (AUTO) 32.3 % (21-51); MEAN CORPUSCULAR HEMOGLOBIN 32.6 PG (27.0-31.0); MEAN CORPUSCULAR HGB CONC 32.7 g/dL (33.0-36.5); MEAN CORPUSCULAR VOLUME 99.8 FL (78-98); MEAN PLATELET VOLUME 8.3 FL (7.4-10.4); MONOCYTES # (AUTO) 1.5 X10'3 (0-0.9); MONOCYTES % (AUTO) 10.2 % (2-12); NEUTROPHILS # (AUTO) 8.2 X10'3 (1.8-7.7); NEUTROPHILS % (AUTO) 55.7 % (42-75); PLATELET COUNT 281 X10'3 (140-440); RED BLOOD COUNT 4.13 X10'6 (4.20-5.60); RED CELL DISTRIBUTION WIDTH 14.4 % (11.5-14.5); WHITE BLOOD COUNT 14.7 X10'3 (4.5-11.0)
[2018-12-02 05:13] LABS: ALBUMIN 2.7 G/DL (3.4-5.0); ANION GAP 6 (8-16); BLOOD UREA NITROGEN 30 MG/DL (7-18); BUN/CREATININE RATIO 27.5 (6.6-38.0); CALCIUM 8.6 MG/DL (8.5-10.1); CHLORIDE 103 MMOL/L (99-107); CREATININE 1.09 MG/DL (0.40-0.90); GLUCOSE 146 MG/DL (70-104); MAGNESIUM 2.1 MG/DL (1.5-2.4); SODIUM 140 MMOL/L (135-145); TOTAL CARBON DIOXIDE 31.1 MMOL/L (24-32); eGFR 51 ML/MIN
[2018-12-02 05:15] LABS: POTASSIUM 4.6 MMOL/L (3.5-5.1)
[2018-12-02 07:20] VITALS: BP 112/69
[2018-12-02] MEDS: K and/or MAG REPLACEMENT MC SCH (08:00)
[2018-12-02] MEDS ORDERED: prednisone 10mg tablet PO SCH (08:30)
[2018-12-02] MEDS: docusate sod 100mg capsule PO SCH (08:49)
[2018-12-02] MEDS: furosemide 20 MG/2 ML vial IV SCH (08:49)
[2018-12-02] MEDS: pantoprazole 40mg Tablet.DR PO SCH (08:49)
[2018-12-02] MEDS: carvedilol 6.25mg tablet PO SCH (08:50)
[2018-12-02] MEDS: venlafaxine XR 75mg capsule (Q24H) PO SCH (08:50)
[2018-12-02] MEDS: lactobacillus rhamnosus 10,000 MMU CELLS/CAPSULE PO SCH (08:50)
[2018-12-02] MEDS: gabapentin 400mg capsule PO SCH (08:51)
[2018-12-02] MEDS: clopidogrel 75mg tablet PO SCH (08:51)
[2018-12-02] MEDS: atorvastatin 10mg tablet PO SCH (08:51)
[2018-12-02] MEDS: lisinopril 2.5mg tablet PO SCH (08:54)
[2018-12-02] MEDS: heparin, porcine 5000 units/ml vial SQ SCH (08:55)
[2018-12-02] MEDS: nicotine 21mg patch - 24 hr TD SCH (08:56)
[2018-12-02] MEDS: HYDROcodone/acetaminophen 5mg/325mg tablet PO PRN (09:01)
[2018-12-02] MEDS: insulin Lispro (HumaLOG) vial - multi-dose SQ SCH (09:03)
[2018-12-02 12:27] VITALS: BP 117/60
[2018-12-02] MEDS: nitroGLYCERIN 0.2mg/hour patch TD SCH (15:57)
[2018-12-02] MEDS ORDERED: LISI2.5T2 PO (16:11)
[2018-12-02] MEDS ORDERED: CARV6.253 PO (16:11)
[2018-12-02] MEDS ORDERED: FURO-150 PO (16:11)
[2018-12-02] MEDS ORDERED: LEVO750T46 PO (16:11)
[2018-12-02] MEDS ORDERED: LANTUS SQ (16:11)
[2018-12-02] MEDS ORDERED: NICO-687 TOP (16:14)
[2018-12-02] MEDS ORDERED: BUDE10.22 INH (16:14)
--- NOTE | 2018-12-02 17:23 | NUR ---
Pt discharged home with friends. Extensive education given on insulin/dm medication management. Patient says she understands but i encouraged her to look over discharge medication list for dose changes for DM and BP meds when she gets home and to call DM doctor to go over new medications and changes from hospitalization. IV taken out, tele dc'd. All belongings taken from room. Pt stable, alert, oriented and independent at time of discharge. No SOB noted with ambulation. Blood sugar in low 300's on discharge. I did not cover her due to possibility of low blood sugar I could not treat. Pt will treat BS when she gets home. Meds called into [facility] on [address], I talked to Pharmacist about changes to insulin as well.
--- NOTE | 2018-12-03 11:37 | NUR ---
Pharmacy sent a fax to us regarding patients RX order for Lantus. Patient is already taking Bafaglar SQ 28 units in am and [address] Enriquez Discontinue order Lantus order and advise patient to take Bafaglar SQ 15 units in the morning and 15 units HS. Follow up with her Diabetes doctor, monitor her blood sugars. Contacted Patient at [phone] and advised of orders. Patient confirmed and she already has a doctor appt scheduled.
== END 2018-12-02 17:23 | disposition home health service (06) | DRG 871 ==
LOC: ER 12:00 → SUR 3N 17:53 → CMPBEDREQ 19:56
PROVIDERS: ADMIT Internal Medicine; ATTEND Family Medicine
DX: A41.9 Sepsis, unspecified organism (principal); J96.90 Respiratory failure, unspecified, unspecified whether with hypoxia or hypercapnia; J15.4 Pneumonia due to other streptococci; I50.23 Acute on chronic systolic (congestive) heart failure; J44.1 Chronic obstructive pulmonary disease with (acute) exacerbation; J44.0 Chronic obstructive pulmonary disease with (acute) lower respiratory infection; I11.0 Hypertensive heart disease with heart failure; K29.70 Gastritis, unspecified, without bleeding; E11.649 Type 2 diabetes mellitus with hypoglycemia without coma; E78.00 Pure hypercholesterolemia, unspecified; G89.29 Other chronic pain; L27.0 Generalized skin eruption due to drugs and medicaments taken internally; T36.8X5A Adverse effect of other systemic antibiotics, initial encounter; B96.3 Hemophilus influenzae [H. influenzae] as the cause of diseases classified elsewhere; F32.9 Major depressive disorder, single episode, unspecified; I25.118 Atherosclerotic heart disease of native coronary artery with other forms of angina pectoris; I25.5 Ischemic cardiomyopathy; K21.9 Gastro-esophageal reflux disease without esophagitis; F17.210 Nicotine dependence, cigarettes, uncomplicated; I25.2 Old myocardial infarction; Z90.49 Acquired absence of other specified parts of digestive tract; Z95.1 Presence of aortocoronary bypass graft; Z88.5 Allergy status to narcotic agent; Z88.8 Allergy status to other drugs, medicaments and biological substances; Z79.02 Long term (current) use of antithrombotics/antiplatelets; Z79.899 Other long term (current) drug therapy; Z83.3 Family history of diabetes mellitus; Z82.49 Family history of ischemic heart disease and other diseases of the circulatory system; Z71.6 Tobacco abuse counseling; Y92.238 Other place in hospital as the place of occurrence of the external cause
CPT/HCPCS: 36415; 71045; 71250; 74176; 80048; 80053; 81001; 81025; 82948; 83036; 83605; 83690; 83735; 83880; 84145; 85025; 85610; 85730; 87040; 87070; 87077; 87088; 87185; 87186; 93005; 93306; 94640; 94760; 96365; 96367; 96375; 97116; 97162; 97530; 99285; G0378; J0456; J0696; J1200; J1644; J1815; J1940; J1956; J2405; J2930; J7512

== ENCOUNTER 2020-07-03 17:26 | Inpatient (IN) | payer MEDICARE, MEDICAID ==
[~2020-07-03] VITALS: Ht 162.6 cm; Wt 69.8 kg
[~2020-07-03 17:26] MED LIST changes: +ACET-1008 PO; -ACET650T78 PO; -ALBU18HF2 IH; +BACL-11 PO; -BUDE10.2; +BUDE10.22 INH; +BUPR150T14 PO; +DIPH25CA83 PO; -FURO-150 PO; +HYDR-4353 PO; +INSU100I31 SUBCUT; -INSU100V9 SQ; -LANTUS SQ; +LORA10TA7 PO; +NALO4SPR BOTHNARES; -NIT10P; -NORCO10T PO; -NOVRI SQ; -OMEP-84 PO; +OMEP40CA13 PO; +ONDA4TAB6 PO; -PRED20TA PO; +VENL150C2 PO
[2020-07-03 18:42] LABS: BASOPHILS # (AUTO) 0.1 X10'3 (0-0.2); BASOPHILS % (AUTO) 0.7 % (0-1); EOSINOPHILS # (AUTO) 0.1 X10'3 (0-0.9); EOSINOPHILS % (AUTO) 0.6 % (0-6); HEMATOCRIT 39.2 % (35.0-45.0); HEMOGLOBIN 12.8 g/dl (12.0-16.0); LYMPHOCYTES % (AUTO) 14.3 % (21-51); MEAN CORPUSCULAR HEMOGLOBIN 32.4 PG (27.0-31.0); MEAN CORPUSCULAR HGB CONC 32.6 g/dL (33.0-36.5); MEAN CORPUSCULAR VOLUME 99.2 FL (78-98); MEAN PLATELET VOLUME 8.5 FL (7.4-10.4); MONOCYTES # (AUTO) 1.2 X10'3 (0-0.9); NEUTROPHILS # (AUTO) 10.3 X10'3 (1.8-7.7); NEUTROPHILS % (AUTO) 75.4 % (42-75); PLATELET COUNT 278 X10'3 (140-440); RED BLOOD COUNT 3.95 X10'6 (4.20-5.60); RED CELL DISTRIBUTION WIDTH 14.5 % (11.5-14.5); WHITE BLOOD COUNT 13.7 X10'3 (4.5-11.0)
[2020-07-03 18:46] LABS: PARTIAL THROMBOPLASTIN TIME 25 SECONDS (22-32)
[2020-07-03 18:58] LABS: ALANINE AMINOTRANSFERASE 28 U/L (12-78); ALBUMIN 3.2 G/DL (3.4-5.0); ALBUMIN/GLOBULIN RATIO 0.8 (1.1-1.5); ALKALINE PHOSPHATASE 87 IU/L (46-116); ANION GAP 9 (8-16); ASPARTATE AMINO TRANSFERASE 14 U/L (10-37); BILIRUBIN,TOTAL 0.5 MG/DL (0.1-1.0); BLOOD UREA NITROGEN 24 MG/DL (7-18); CALCIUM 9.7 MG/DL (8.5-10.1); CHLORIDE 103 MMOL/L (99-107); CREATININE 1.41 MG/DL (0.40-0.90); GLUCOSE 123 MG/DL (70-104); POTASSIUM 4.2 MMOL/L (3.5-5.1); SODIUM 139 MMOL/L (135-145); TOTAL CARBON DIOXIDE 27.1 MMOL/L (24-32); TOTAL PROTEIN 7.1 G/DL (6.4-8.2); eGFR 37 ML/MIN
[2020-07-03 19:13] LABS: D-DIMER 0.28 MG/L FEU (0-0.50)
[2020-07-03] MEDS ORDERED: furosemide 40mg/4ml inj IV ONE (19:35)
[2020-07-03] MEDS ORDERED: FURO80TA3 PO (19:55)
[2020-07-03] MEDS ORDERED: potassium CL 10mEq/100ml bag 100 ML IV PRN ×2 (20:35)
[2020-07-03] MEDS ORDERED: mag hydrox/Alum hydrox/simeth 30ml oral suspension PO PRN (20:35)
[2020-07-03] MEDS ORDERED: acetaminophen 325mg tablet PO PRN (20:35)
[2020-07-03] MEDS ORDERED: magnesium hydroxide 30ml (MOM) UD suspension PO PRN (20:35)
[2020-07-03] MEDS ORDERED: ondansetron/PF 4mg/2ml inj IV PRN (20:35)
[2020-07-03] MEDS ORDERED: potassium Cl 20 mEq SR tablet PO PRN ×2 (20:35)
[2020-07-03] MEDS ORDERED: MESSAGE TO PHARMACY PO ONE (20:40)
[2020-07-03] MEDS ORDERED: dextrose 50%-water 50ml dispensing syringe IV PRN ×2 (20:40)
[2020-07-03] MEDS ORDERED: glucagon, human recombinant 1mg kit SUBCUT PRN (20:40)
[2020-07-03] MEDS ORDERED: dextrose ORAL solution 15 GM/59 ML bottle PO PRN ×2 (20:40)
[2020-07-03] MEDS ORDERED: ipratropium/albuterol 3ml nebule IH PRN (20:45)
[2020-07-03] MEDS ORDERED: loratadine 10mg tablet PO PRN (20:45)
[2020-07-03] MEDS ORDERED: diphenhydrAMINE 25mg capsule PO PRN (20:45)
[2020-07-03] MEDS ORDERED: nitroGLYCERIN 0.4mg SUBLingual tab SL PRN (20:45)
[2020-07-03 20:56] LABS: HEMOGLOBIN A1C 8.4 % (4.5-6.2)
[2020-07-03] MEDS ORDERED: warfarin 5mg tablet PO ONE (21:00)
[2020-07-03] MEDS: insulin glargine (Lantus) pen - multi-dose SQ SCH (21:00)
[2020-07-03 23:30] VITALS: BP 110/45
[2020-07-04] VITALS (8 sets, daily range): BP systolic 79–122; BP diastolic 38–55
[2020-07-04] MEDS: pravastatin 40mg tablet PO SCH (01:05)
[2020-07-04] MEDS: gabapentin 400mg capsule PO SCH ×3 (01:05→13:23)
[2020-07-04] MEDS: HYDROcodone/acetaminophen 10/325mg tab PO PRN ×3 (01:11→21:20)
[2020-07-04] MEDS: albuterol 2.5 MG/3 ML nebule NEB SCH ×4 (02:42→20:30)
--- NOTE | 2020-07-04 05:45 | NUR ---
Patient in room PCU 3028. I have received report from JACKIE Williamson and had the opportunity to ask questions and assume patient care.
[2020-07-04 06:28] LABS: BASOPHILS # (AUTO) 0.1 X10'3 (0-0.2); BASOPHILS % (AUTO) 0.7 % (0-1); EOSINOPHILS # (AUTO) 0.1 X10'3 (0-0.9); HEMOGLOBIN 12.5 g/dl (12.0-16.0); LYMPHOCYTES # (AUTO) 2.8 X10'3 (1.1-4.8); LYMPHOCYTES % (AUTO) 24.8 % (21-51); MEAN CORPUSCULAR VOLUME 100.1 FL (78-98); MEAN PLATELET VOLUME 8.1 FL (7.4-10.4); MONOCYTES # (AUTO) 1.6 X10'3 (0-0.9); MONOCYTES % (AUTO) 14.3 % (2-12); NEUTROPHILS # (AUTO) 6.7 X10'3 (1.8-7.7); NEUTROPHILS % (AUTO) 59.2 % (42-75); PLATELET COUNT 258 X10'3 (140-440); RED BLOOD COUNT 3.79 X10'6 (4.20-5.60); RED CELL DISTRIBUTION WIDTH 14.2 % (11.5-14.5); WHITE BLOOD COUNT 11.3 X10'3 (4.5-11.0)
[2020-07-04 06:42] LABS: ALANINE AMINOTRANSFERASE 23 U/L (12-78); ALBUMIN 3.1 G/DL (3.4-5.0); ALBUMIN/GLOBULIN RATIO 0.8 (1.1-1.5); ALKALINE PHOSPHATASE 77 IU/L (46-116); ANION GAP 7 (8-16); ASPARTATE AMINO TRANSFERASE 13 U/L (10-37); BILIRUBIN,TOTAL 0.4 MG/DL (0.1-1.0); BLOOD UREA NITROGEN 28 MG/DL (7-18); CALCIUM 9.9 MG/DL (8.5-10.1); CHLORIDE 104 MMOL/L (99-107); GLUCOSE 129 MG/DL (70-104); POTASSIUM 3.7 MMOL/L (3.5-5.1); SODIUM 140 MMOL/L (135-145); TOTAL PROTEIN 6.9 G/DL (6.4-8.2); eGFR 38 ML/MIN
--- NOTE | 2020-07-04 06:43 | NUR ---
Received report from Paty MEJIA, [facility].
--- NOTE | 2020-07-04 06:44 | NUR ---
Problems reprioritized. Patient report given, questions answered & plan of care reviewed with JACKIE Gong.
[2020-07-04] MEDS: K and/or MAG REPLACEMENT MC SCH ×2 (08:00→20:00)
[2020-07-04] MEDS: budesonide 0.5mg/2ml UD nebule IH SCH ×2 (08:20→20:31)
[2020-07-04] MEDS: buPROPion SR 150mg tablet PO SCH ×2 (09:19→20:08)
[2020-07-04] MEDS: carVEDilol 3.125mg tablet PO SCH ×2 (09:20→20:00)
[2020-07-04] MEDS: lisinopril 10 MG tablet PO SCH (09:20)
[2020-07-04] MEDS: clopidogrel 75mg tablet PO SCH (09:21)
[2020-07-04] MEDS: furosemide 10 MG/1 ML 10ml inj IV SCH ×2 (09:21→20:00)
[2020-07-04] MEDS: venlafaxine XR 75mg capsule (Q24H) PO SCH (09:21)
[2020-07-04] MEDS: pantoprazole 40mg Tablet.DR PO SCH (09:26)
--- NOTE | 2020-07-04 09:57 | NUR ---
Paged hosp, "zander [phone] Ludmila Marley occasional bursts SVT, recent one almost 6 seconds HR up to 170's. Orders?"
--- NOTE | 2020-07-04 11:36 | NUR ---
DM consult: A1c 8.4%. RD financial services internship met with pt at bedside for written/verbal DM ed. Pt reports she sees PCP q 3 months for DM and takes medications as prescribed with no difficulties receiving/taking them. Checks BG 4x/day before meals. Pt reports not comfortable with her current DM management as her diet consists of "whatever is available" and does not look at amount of carbs or carb counts. Encouraged pt to consider carb counting and looking at portion sizes to lower A1c, pt aware and states she has a book for carb counting at home, but does not try to carb count. Discussed w/ pt DM ed handout and choosing complex carbs over simple carbs. Pt did not have any questions and was provided with RD contact info. Will remain available. Addendum: 07/04/20 at [address] Amended: Links added. Addendum: 07/04/20 at [address] I have reviewed and agree with note by Control Clerk. Zonia Solis, RD
--- NOTE | 2020-07-04 15:29 | NUR ---
Paged Dr. Mar, "zander [phone] oZ-Ludmila Bah has low BP 80/38 HR 83, only symptom is states blurry vision, denies dizziness" Waiting on further instruction.
--- NOTE | 2020-07-04 15:33 | NUR ---
Dr. Mar returned page. Made him aware that this nurse performed passive leg raise for a patient fluid bolus which improved her BP to 94/48.
--- NOTE | 2020-07-04 17:55 | NUR ---
CRITICAL CARE NURSE PRACTITIONER made nurse aware of 79/41 (57), performed passive leg raise, noted 80/39 (51). Will cont. to monitor.
--- NOTE | 2020-07-04 18:14 | NUR ---
Gave report to Brittny MEJIA, transferred care.
[2020-07-04] MEDS: gabapentin 300mg capsule PO SCH (20:08)
[2020-07-04] MEDS ORDERED: warfarin 7.5mg tablet PO ONE (21:00)
[2020-07-04] MEDS: insulin glargine (Lantus) pen - multi-dose SQ SCH (21:00)
--- NOTE | 2020-07-04 23:19 | NUR ---
Patient in room PCU 3028. I have received report from Farideh MEJIA, and had the opportunity to ask questions and assume patient care.
[2020-07-05] VITALS (10 sets, daily range): BP systolic 53–108; BP diastolic 35–74
[2020-07-05] MEDS: albuterol 2.5 MG/3 ML nebule NEB SCH ×4 (03:30→19:53)
[2020-07-05] MEDS: HYDROcodone/acetaminophen 10/325mg tab PO PRN ×2 (05:52→20:12)
[2020-07-05 05:55] LABS: BASOPHILS # (AUTO) 0.1 X10'3 (0-0.2); BASOPHILS % (AUTO) 0.8 % (0-1); EOSINOPHILS # (AUTO) 0.1 X10'3 (0-0.9); EOSINOPHILS % (AUTO) 0.7 % (0-6); HEMATOCRIT 36.1 % (35.0-45.0); HEMOGLOBIN 11.9 g/dl (12.0-16.0); LYMPHOCYTES # (AUTO) 1.4 X10'3 (1.1-4.8); LYMPHOCYTES % (AUTO) 13.8 % (21-51); MEAN CORPUSCULAR HEMOGLOBIN 33.1 PG (27.0-31.0); MEAN CORPUSCULAR VOLUME 100.3 FL (78-98); MEAN PLATELET VOLUME 8.4 FL (7.4-10.4); MONOCYTES # (AUTO) 1.1 X10'3 (0-0.9); MONOCYTES % (AUTO) 11.7 % (2-12); NEUTROPHILS # (AUTO) 7.1 X10'3 (1.8-7.7); PLATELET COUNT 248 X10'3 (140-440); RED CELL DISTRIBUTION WIDTH 14.3 % (11.5-14.5); WHITE BLOOD COUNT 9.8 X10'3 (4.5-11.0)
[2020-07-05 06:21] LABS: ALANINE AMINOTRANSFERASE 26 U/L (12-78); ALBUMIN 2.9 G/DL (3.4-5.0); ALBUMIN/GLOBULIN RATIO 0.8 (1.1-1.5); ALKALINE PHOSPHATASE 74 IU/L (46-116); ANION GAP 10 (8-16); ASPARTATE AMINO TRANSFERASE 22 U/L (10-37); BILIRUBIN,TOTAL 0.4 MG/DL (0.1-1.0); BLOOD UREA NITROGEN 40 MG/DL (7-18); BUN/CREATININE RATIO 21.9 (6.6-38.0); CALCIUM 8.8 MG/DL (8.5-10.1); CHLORIDE 99 MMOL/L (99-107); CREATININE 1.83 MG/DL (0.40-0.90); GLUCOSE 171 MG/DL (70-104); POTASSIUM 4.4 MMOL/L (3.5-5.1); SODIUM 136 MMOL/L (135-145); TOTAL CARBON DIOXIDE 27.3 MMOL/L (24-32); TOTAL PROTEIN 6.5 G/DL (6.4-8.2); eGFR 28 ML/MIN
--- NOTE | 2020-07-05 06:35 | NUR ---
Problems reprioritized. Patient report given, questions answered & plan of care reviewed with Charleen MEJIA.
--- NOTE | 2020-07-05 06:54 | NUR ---
Patient in room PCU 3028. I have received report from JACKIE William and had the opportunity to ask questions and assume patient care.
[2020-07-05] MEDS: clopidogrel 75mg tablet PO SCH (07:32)
[2020-07-05] MEDS: venlafaxine XR 75mg capsule (Q24H) PO SCH (07:32)
[2020-07-05] MEDS: buPROPion SR 150mg tablet PO SCH ×2 (07:32→20:11)
[2020-07-05] MEDS: gabapentin 300mg capsule PO SCH (07:32)
[2020-07-05] MEDS: pantoprazole 40mg Tablet.DR PO SCH (07:33)
[2020-07-05] MEDS: pravastatin 40mg tablet PO SCH (07:33)
[2020-07-05] MEDS: K and/or MAG REPLACEMENT MC SCH ×2 (07:34→20:00)
[2020-07-05] MEDS: furosemide 10 MG/1 ML 10ml inj IV SCH (07:34)
[2020-07-05] MEDS: lisinopril 10 MG tablet PO SCH (07:35)
[2020-07-05] MEDS: carVEDilol 3.125mg tablet PO SCH (07:35)
[2020-07-05] MEDS: budesonide 0.5mg/2ml UD nebule IH SCH ×2 (11:05→19:53)
--- NOTE | 2020-07-05 11:20 | NUR ---
Per Rusu, PT eval and treat order, and give lasix even with a BP <100
[2020-07-05] MEDS ORDERED: furosemide 20MG tablet PO ONE (11:45)
--- NOTE | 2020-07-05 11:46 | NUR ---
New orders for pt to be placed a dobutamine gtt r/t low BP and a one time now dose of lasix 20mg.
[2020-07-05] MEDS: DOBUTamine-DoBUTrex 500mg/D5W 250 ML IV SCH (12:32)
--- NOTE | 2020-07-05 15:59 | NUR ---
PAGER ID: [phone] MESSAGE: [id number] - Ludmila Bah: FYI- Pt SBP has been in 80s-90s. MAP trending 50-69. Current BP 108/43 -maldonado [id number]
[2020-07-05] MEDS: furosemide 20 MG/2 ML vial IV SCH (20:00)
[2020-07-05] MEDS: insulin glargine (Lantus) pen - multi-dose SQ SCH (21:00)
[2020-07-05] MEDS ORDERED: warfarin 7.5mg tablet PO ONE (21:00)
--- NOTE | 2020-07-05 22:25 | NUR ---
Patient in room PCU 3028. I have received report from Charleen MEJIA and had the opportunity to ask questions and assume patient care.
[2020-07-06] VITALS (16 sets, daily range): BP systolic 69–130; BP diastolic 39–103
[2020-07-06] MEDS: albuterol 2.5 MG/3 ML nebule NEB SCH ×4 (02:36→21:21)
[2020-07-06 06:01] LABS: BASOPHILS # (AUTO) 0.1 X10'3 (0-0.2); EOSINOPHILS # (AUTO) 0.1 X10'3 (0-0.9); HEMATOCRIT 33.3 % (35.0-45.0); HEMOGLOBIN 11.2 g/dl (12.0-16.0); LYMPHOCYTES # (AUTO) 1.5 X10'3 (1.1-4.8); LYMPHOCYTES % (AUTO) 18.9 % (21-51); MEAN CORPUSCULAR HEMOGLOBIN 33.6 PG (27.0-31.0); MEAN CORPUSCULAR HGB CONC 33.6 g/dL (33.0-36.5); MEAN CORPUSCULAR VOLUME 99.9 FL (78-98); MEAN PLATELET VOLUME 8.1 FL (7.4-10.4); MONOCYTES % (AUTO) 12.5 % (2-12); NEUTROPHILS # (AUTO) 5.1 X10'3 (1.8-7.7); NEUTROPHILS % (AUTO) 66.6 % (42-75); PLATELET COUNT 222 X10'3 (140-440); RED BLOOD COUNT 3.33 X10'6 (4.20-5.60); RED CELL DISTRIBUTION WIDTH 13.9 % (11.5-14.5); WHITE BLOOD COUNT 7.7 X10'3 (4.5-11.0)
--- NOTE | 2020-07-06 06:27 | NUR ---
Problems reprioritized. Patient report given, questions answered & plan of care reviewed with Charleen MEJIA.
[2020-07-06 06:35] LABS: ALANINE AMINOTRANSFERASE 27 U/L (12-78); ALBUMIN 3.1 G/DL (3.4-5.0); ALBUMIN/GLOBULIN RATIO 0.8 (1.1-1.5); ALKALINE PHOSPHATASE 81 IU/L (46-116); ANION GAP 9 (8-16); ASPARTATE AMINO TRANSFERASE 24 U/L (10-37); BILIRUBIN,TOTAL 0.3 MG/DL (0.1-1.0); BLOOD UREA NITROGEN 41 MG/DL (7-18); BUN/CREATININE RATIO 21.8 (6.6-38.0); CALCIUM 8.7 MG/DL (8.5-10.1); CHLORIDE 99 MMOL/L (99-107); CREATININE 1.88 MG/DL (0.40-0.90); GLUCOSE 128 MG/DL (70-104); POTASSIUM 4.4 MMOL/L (3.5-5.1); SODIUM 136 MMOL/L (135-145); TOTAL CARBON DIOXIDE 28.5 MMOL/L (24-32); TOTAL PROTEIN 6.8 G/DL (6.4-8.2); eGFR 27 ML/MIN
[2020-07-06] MEDS: budesonide 0.5mg/2ml UD nebule IH SCH ×2 (08:02→21:21)
[2020-07-06] MEDS: pravastatin 40mg tablet PO SCH (08:05)
[2020-07-06] MEDS: buPROPion SR 150mg tablet PO SCH ×2 (08:05→20:00)
[2020-07-06] MEDS: venlafaxine XR 75mg capsule (Q24H) PO SCH (08:05)
[2020-07-06] MEDS: pantoprazole 40mg Tablet.DR PO SCH (08:06)
[2020-07-06] MEDS: gabapentin 300mg capsule PO SCH (08:06)
[2020-07-06] MEDS: clopidogrel 75mg tablet PO SCH (08:06)
[2020-07-06] MEDS: furosemide 20 MG/2 ML vial IV SCH ×2 (08:08→21:27)
[2020-07-06] MEDS: K and/or MAG REPLACEMENT MC SCH ×2 (08:08→20:00)
--- NOTE | 2020-07-06 11:43 | NUR ---
Patient in room PCU 3028. I have received report from JACKIE William and had the opportunity to ask questions and assume patient care.
--- NOTE | 2020-07-06 14:04 | NUR ---
PAGER ID: [phone] MESSAGE: [id number]: Ludmila Bah - My apologies for last page! Can I have an order for a sitter? Pt keeps getting out of bed, pls and thanks! - Charleen -[phone]
--- NOTE | 2020-07-06 18:08 | NUR ---
Problems reprioritized. Patient report given, questions answered & plan of care reviewed with JACKIE Stallworth.
--- NOTE | 2020-07-06 18:09 | NUR ---
Per Rusu, discontinue dobutamine gtt.
--- NOTE | 2020-07-06 18:13 | NUR ---
Patient in room PCU 3012. I have received report from Charleen MEJIA and had the opportunity to ask questions and assume patient care.
[2020-07-06] MEDS: baclofen 10mg tablet PO PRN (20:00)
[2020-07-06] MEDS ORDERED: warfarin 3mg tablet PO ONE (21:00)
[2020-07-06] MEDS: insulin glargine (Lantus) pen - multi-dose SQ SCH (21:00)
[2020-07-07 02:00] VITALS: BP 107/55
[2020-07-07] MEDS: albuterol 2.5 MG/3 ML nebule NEB SCH ×4 (03:00→21:05)
[2020-07-07 06:03] LABS: BASOPHILS # (AUTO) 0.1 X10'3 (0-0.2); BASOPHILS % (AUTO) 0.9 % (0-1); EOSINOPHILS % (AUTO) 0.4 % (0-6); HEMOGLOBIN 11.6 g/dl (12.0-16.0); LYMPHOCYTES # (AUTO) 1.3 X10'3 (1.1-4.8); MEAN CORPUSCULAR HEMOGLOBIN 32.8 PG (27.0-31.0); MEAN CORPUSCULAR HGB CONC 33.1 g/dL (33.0-36.5); MEAN CORPUSCULAR VOLUME 99.1 FL (78-98); MEAN PLATELET VOLUME 8.6 FL (7.4-10.4); MONOCYTES % (AUTO) 13.8 % (2-12); NEUTROPHILS # (AUTO) 4.8 X10'3 (1.8-7.7); NEUTROPHILS % (AUTO) 66.9 % (42-75); PLATELET COUNT 237 X10'3 (140-440); RED BLOOD COUNT 3.53 X10'6 (4.20-5.60); WHITE BLOOD COUNT 7.1 X10'3 (4.5-11.0)
[2020-07-07 06:14] LABS: ALANINE AMINOTRANSFERASE 35 U/L (12-78); ALBUMIN 3.3 G/DL (3.4-5.0); ALBUMIN/GLOBULIN RATIO 0.8 (1.1-1.5); ALKALINE PHOSPHATASE 89 IU/L (46-116); ANION GAP 9 (8-16); ASPARTATE AMINO TRANSFERASE 33 U/L (10-37); BILIRUBIN,TOTAL 0.5 MG/DL (0.1-1.0); BLOOD UREA NITROGEN 34 MG/DL (7-18); BUN/CREATININE RATIO 21.4 (6.6-38.0); CALCIUM 9.2 MG/DL (8.5-10.1); CHLORIDE 99 MMOL/L (99-107); CREATININE 1.59 MG/DL (0.40-0.90); GLUCOSE 169 MG/DL (70-104); POTASSIUM 4.4 MMOL/L (3.5-5.1); SODIUM 136 MMOL/L (135-145); TOTAL CARBON DIOXIDE 28.4 MMOL/L (24-32); TOTAL PROTEIN 7.2 G/DL (6.4-8.2); eGFR 32 ML/MIN
--- NOTE | 2020-07-07 06:15 | NUR ---
Problems reprioritized. Patient report given, questions answered & plan of care reviewed with Susana MEJIA.
--- NOTE | 2020-07-07 06:15 | NUR ---
Patient in room PCU 3012. I have received report from Basim MEJIA and had the opportunity to ask questions and assume patient care.
[2020-07-07 06:48] VITALS: BP 116/54
[2020-07-07] MEDS: K and/or MAG REPLACEMENT MC SCH ×2 (07:24→20:00)
[2020-07-07] MEDS: venlafaxine XR 75mg capsule (Q24H) PO SCH (07:54)
[2020-07-07] MEDS: gabapentin 300mg capsule PO SCH (07:54)
[2020-07-07] MEDS: buPROPion SR 150mg tablet PO SCH ×2 (07:54→23:57)
[2020-07-07] MEDS: pravastatin 40mg tablet PO SCH (07:54)
[2020-07-07] MEDS: pantoprazole 40mg Tablet.DR PO SCH (07:54)
[2020-07-07] MEDS: clopidogrel 75mg tablet PO SCH (07:54)
[2020-07-07] MEDS: furosemide 20 MG/2 ML vial IV SCH ×2 (07:55→23:56)
[2020-07-07] MEDS: insulin Lispro (HumaLOG) vial - multi-dose SQ SCH ×3 (08:03→19:21)
[2020-07-07] MEDS: budesonide 0.5mg/2ml UD nebule IH SCH ×2 (09:00→21:05)
[2020-07-07] MEDS: DOBUTamine-DoBUTrex 500mg/D5W 250 ML IV SCH (10:56)
[2020-07-07 11:24] VITALS: BP 131/73
--- NOTE | 2020-07-07 13:45 | NUR ---
BG 113 patient level 2 and had 0 carb intake, no coverage needed for lunch.
[2020-07-07 15:32] VITALS: BP 123/77
[2020-07-07 18:00] VITALS: BP 126/80
--- NOTE | 2020-07-07 18:00 | NUR ---
Patient in room U 3012. I have received report from Susana MEJIA and had the opportunity to ask questions and assume patient care. Addendum: 07/07/20 at 2103 by Shayna Romano RN Amended: Links added.
--- NOTE | 2020-07-07 18:27 | NUR ---
Problems reprioritized. Patient report given, questions answered & plan of care reviewed with Shayna MEJIA.
[2020-07-07] MEDS: insulin glargine (Lantus) pen - multi-dose SQ SCH (21:00)
[2020-07-07] MEDS ORDERED: warfarin 1mg tablet PO ONE (21:00)
[2020-07-07] MEDS: baclofen 10mg tablet PO PRN (23:57)
[2020-07-08 02:00] VITALS: BP 126/57
[2020-07-08] MEDS: albuterol 2.5 MG/3 ML nebule NEB SCH ×2 (02:42→08:35)
--- NOTE | 2020-07-08 02:51 | NUR ---
Coumadin dose administered as ordered 1 mg p.o INR 2.5 noted. Addendum: 07/08/20 at 0254 by Shayna Romano RN Amended: Links added.
--- NOTE | 2020-07-08 06:00 | NUR ---
Problems reprioritized. Patient report given, questions answered & plan of care reviewed with Suzan MEJIA. Addendum: 07/08/20 at 0733 by Shayna Romano RN Amended: Links added.
[2020-07-08 06:06] LABS: BASOPHILS # (AUTO) 0.1 X10'3 (0-0.2); BASOPHILS % (AUTO) 1.3 % (0-1); EOSINOPHILS # (AUTO) 0.1 X10'3 (0-0.9); EOSINOPHILS % (AUTO) 0.8 % (0-6); HEMATOCRIT 36.3 % (35.0-45.0); LYMPHOCYTES # (AUTO) 1.6 X10'3 (1.1-4.8); LYMPHOCYTES % (AUTO) 23.5 % (21-51); MEAN CORPUSCULAR HEMOGLOBIN 32.4 PG (27.0-31.0); MEAN CORPUSCULAR VOLUME 98.1 FL (78-98); MEAN PLATELET VOLUME 8.2 FL (7.4-10.4); MONOCYTES # (AUTO) 0.8 X10'3 (0-0.9); NEUTROPHILS # (AUTO) 4.3 X10'3 (1.8-7.7); NEUTROPHILS % (AUTO) 62.4 % (42-75); PLATELET COUNT 254 X10'3 (140-440); RED CELL DISTRIBUTION WIDTH 13.9 % (11.5-14.5); WHITE BLOOD COUNT 6.9 X10'3 (4.5-11.0)
[2020-07-08 06:37] LABS: ANION GAP 9 (8-16); BILIRUBIN,TOTAL 0.6 MG/DL (0.1-1.0); BLOOD UREA NITROGEN 32 MG/DL (7-18); BUN/CREATININE RATIO 22.4 (6.6-38.0); CALCIUM 9.1 MG/DL (8.5-10.1); CHLORIDE 101 MMOL/L (99-107); CREATININE 1.43 MG/DL (0.40-0.90); GLUCOSE 180 MG/DL (70-104); POTASSIUM 3.9 MMOL/L (3.5-5.1); SODIUM 139 MMOL/L (135-145); TOTAL CARBON DIOXIDE 29.5 MMOL/L (24-32); TOTAL PROTEIN 7.4 G/DL (6.4-8.2); eGFR 37 ML/MIN
[2020-07-08 06:38] LABS: ALANINE AMINOTRANSFERASE 33 U/L (12-78); ALBUMIN 3.3 G/DL (3.4-5.0); ALBUMIN/GLOBULIN RATIO 0.8 (1.1-1.5); ALKALINE PHOSPHATASE 91 IU/L (46-116); ASPARTATE AMINO TRANSFERASE 22 U/L (10-37)
--- NOTE | 2020-07-08 06:41 | NUR ---
Patient in room PCU 3012. I have received report from Shayna MEJAI and had the opportunity to ask questions and assume patient care.
[2020-07-08 07:00] VITALS: BP 124/61
[2020-07-08] MEDS: pravastatin 40mg tablet PO SCH (07:39)
[2020-07-08] MEDS: clopidogrel 75mg tablet PO SCH (07:40)
[2020-07-08] MEDS: buPROPion SR 150mg tablet PO SCH (07:40)
[2020-07-08] MEDS: pantoprazole 40mg Tablet.DR PO SCH (07:40)
[2020-07-08] MEDS: gabapentin 300mg capsule PO SCH (07:40)
[2020-07-08] MEDS: venlafaxine XR 75mg capsule (Q24H) PO SCH (07:40)
[2020-07-08] MEDS: furosemide 20 MG/2 ML vial IV SCH (07:41)
[2020-07-08] MEDS: K and/or MAG REPLACEMENT MC SCH (08:00)
[2020-07-08] MEDS: budesonide 0.5mg/2ml UD nebule IH SCH (08:35)
[2020-07-08] MEDS: insulin Lispro (HumaLOG) vial - multi-dose SQ SCH (09:33)
[2020-07-08 11:00] VITALS: BP 104/47
--- NOTE | 2020-07-08 11:47 | NUR ---
PAGER ID: [phone] MESSAGE: [id number] Ludmila Bah, CXR results in. Patient ambulated without oxygen saturations remained greater than 92%. Eloisa MEJIA [phone]
[2020-07-08] MEDS ORDERED: gabapentin capsule PO (12:07)
[2020-07-08] MEDS ORDERED: PANT40TA54 PO (12:07)
[2020-07-08] MEDS ORDERED: FURO20TA4 PO (12:07)
--- NOTE | 2020-07-08 14:04 | NUR ---
Reviewed discharge instructions with patient. Patient verbalized understanding and will make her own follow-up appt. Belongings left behind, patient to return to retrieve. PIV and tele removed. Patient left in stable condition.
--- NOTE | 2020-07-08 14:06 | NUR ---
Orientee documentation: I have reviewed and agree with all interventions, assessments performed and documented by Brenda MEJIA.
[2020-07-08] MEDS ORDERED: warfarin 3mg tablet PO ONE (21:00)
== END 2020-07-08 13:12 | disposition home or self-care (01) | DRG 291 ==
LOC: ER 17:26 → ED HOLD 20:33 → PCU 3S 23:18
PROVIDERS: ADMIT Internal Medicine; ATTEND Internal Medicine
DX: I11.0 Hypertensive heart disease with heart failure (principal); J96.01 Acute respiratory failure with hypoxia; N17.9 Acute kidney failure, unspecified; I25.10 Atherosclerotic heart disease of native coronary artery without angina pectoris; I50.23 Acute on chronic systolic (congestive) heart failure; E11.65 Type 2 diabetes mellitus with hyperglycemia; E78.00 Pure hypercholesterolemia, unspecified; G89.4 Chronic pain syndrome; F32.9 Major depressive disorder, single episode, unspecified; F17.210 Nicotine dependence, cigarettes, uncomplicated; I95.9 Hypotension, unspecified; Z20.828 Contact with and (suspected) exposure to other viral communicable diseases; I48.0 Paroxysmal atrial fibrillation; J44.9 Chronic obstructive pulmonary disease, unspecified; Z82.49 Family history of ischemic heart disease and other diseases of the circulatory system; Z83.3 Family history of diabetes mellitus; Z95.1 Presence of aortocoronary bypass graft; Z88.8 Allergy status to other drugs, medicaments and biological substances; Z90.49 Acquired absence of other specified parts of digestive tract; Z79.899 Other long term (current) drug therapy
CPT/HCPCS: 36415; 71045; 71046; 80053; 82948; 83036; 83605; 83880; 84145; 84484; 85025; 85379; 85610; 85730; 87040; 87081; 87635; 93005; 93306; 93308; 94640; 94760; 96374; 97116; 97161; 97530; 99285; C9803; G0378; J1250; J1815; J1940; J7626

== ENCOUNTER 2020-10-07 12:37 | Emergency (ER) | payer MEDICARE, MEDICAID ==
[~2020-10-07] VITALS: Ht 165.1 cm; Wt 61.8 kg
[~2020-10-07 12:37] MED LIST changes: -ALBU18HF2 INH; -BACL-11 PO; +BACL10TA2 PO; -BUPR150T14 PO; -CARV3.122 PO; +CARV6.253 PO; +CLOP75TA34 PO; -CLOP75TA35 PO; +FURO20TA4 PO; -GABA-330 PO; +GABA-534 PO; +LISI10TA27 PO; -LISI10TA4 PO; -NALO4SPR BOTHNARES; +NOVLG; +OMEP-50 PO; -OMEP40CA13 PO; -ONDA4TAB6 PO; +PANT40TA54 PO; -VENL150C2 PO
[2020-10-07 12:54] LABS: BASOPHILS % (AUTO) 0.5 % (0-1); EOSINOPHILS # (AUTO) 0.2 X10'3 (0-0.9); EOSINOPHILS % (AUTO) 2.2 % (0-6); HEMOGLOBIN 11.2 g/dl (12.0-16.0); LYMPHOCYTES % (AUTO) 21.7 % (21-51); MEAN CORPUSCULAR HEMOGLOBIN 32.3 PG (27.0-31.0); MEAN CORPUSCULAR VOLUME 97.9 FL (78-98); MEAN PLATELET VOLUME 8.3 FL (7.4-10.4); MONOCYTES # (AUTO) 0.8 X10'3 (0-0.9); MONOCYTES % (AUTO) 8.7 % (2-12); NEUTROPHILS # (AUTO) 6.3 X10'3 (1.8-7.7); NEUTROPHILS % (AUTO) 66.9 % (42-75); PLATELET COUNT 340 X10'3 (140-440); RED BLOOD COUNT 3.47 X10'6 (4.20-5.60); RED CELL DISTRIBUTION WIDTH 17.7 % (11.5-14.5); WHITE BLOOD COUNT 9.4 X10'3 (4.5-11.0)
[2020-10-07 13:19] LABS: PARTIAL THROMBOPLASTIN TIME 29 SECONDS (22-32)
[2020-10-07 13:22] LABS: ALANINE AMINOTRANSFERASE 22 U/L (12-78); ALBUMIN 2.9 G/DL (3.4-5.0); ALBUMIN/GLOBULIN RATIO 0.8 (1.1-1.5); ALKALINE PHOSPHATASE 70 IU/L (46-116); ANION GAP 8 (8-16); ASPARTATE AMINO TRANSFERASE 29 U/L (10-37); BILIRUBIN,TOTAL 0.4 MG/DL (0.1-1.0); BLOOD UREA NITROGEN 26 MG/DL (7-18); CALCIUM 8.7 MG/DL (8.5-10.1); CHLORIDE 105 MMOL/L (99-107); CREATININE 1.13 MG/DL (0.40-0.90); GLUCOSE 120 MG/DL (70-104); POTASSIUM 4.5 MMOL/L (3.5-5.1); SODIUM 142 MMOL/L (135-145); TOTAL CARBON DIOXIDE 29.1 MMOL/L (24-32); TOTAL PROTEIN 6.7 G/DL (6.4-8.2); eGFR 48 ML/MIN
[2020-10-07 15:58] VITALS: BP 112/44
== END 2020-10-07 16:41 | disposition home or self-care (01) ==
LOC: ER 12:38
DX: R07.89 Other chest pain (principal); I48.91 Unspecified atrial fibrillation; I25.10 Atherosclerotic heart disease of native coronary artery without angina pectoris; I11.0 Hypertensive heart disease with heart failure; I50.9 Heart failure, unspecified; E78.00 Pure hypercholesterolemia, unspecified; J44.9 Chronic obstructive pulmonary disease, unspecified; E11.9 Type 2 diabetes mellitus without complications; G89.29 Other chronic pain; Z90.49 Acquired absence of other specified parts of digestive tract; Z98.890 Other specified postprocedural states; Z88.5 Allergy status to narcotic agent; Z88.8 Allergy status to other drugs, medicaments and biological substances; Z91.018 Allergy to other foods; Z79.4 Long term (current) use of insulin; Z79.899 Other long term (current) drug therapy
CPT/HCPCS: 36415; 71045; 80053; 83735; 83880; 84484; 85025; 85610; 85730; 93005; 99285

== ENCOUNTER 2020-12-13 11:40 | Emergency (ER) | payer MEDICARE, MEDICAID ==
[~2020-12-13] VITALS: Ht 163.8 cm; Wt 69.1 kg
[2020-12-13 13:35] LABS: BASOPHILS # (AUTO) 0.1 X10'3 (0-0.2); BASOPHILS % (AUTO) 0.8 % (0-1); EOSINOPHILS # (AUTO) 0.1 X10'3 (0-0.9); EOSINOPHILS % (AUTO) 1.1 % (0-6); HEMATOCRIT 29.5 % (35.0-45.0); HEMOGLOBIN 9.6 g/dl (12.0-16.0); LYMPHOCYTES # (AUTO) 1.5 X10'3 (1.1-4.8); LYMPHOCYTES % (AUTO) 11.5 % (21-51); MEAN CORPUSCULAR HEMOGLOBIN 31.6 PG (27.0-31.0); MEAN CORPUSCULAR HGB CONC 32.4 g/dL (33.0-36.5); MEAN CORPUSCULAR VOLUME 97.6 FL (78-98); MEAN PLATELET VOLUME 8.1 FL (7.4-10.4); MONOCYTES # (AUTO) 1.2 X10'3 (0-0.9); MONOCYTES % (AUTO) 9.6 % (2-12); NEUTROPHILS # (AUTO) 9.8 X10'3 (1.8-7.7); PLATELET COUNT 292 X10'3 (140-440); RED BLOOD COUNT 3.02 X10'6 (4.20-5.60); RED CELL DISTRIBUTION WIDTH 15.5 % (11.5-14.5); WHITE BLOOD COUNT 12.7 X10'3 (4.5-11.0)
[2020-12-13 13:53] LABS: ALANINE AMINOTRANSFERASE 7 U/L (12-78); ALBUMIN 3.1 G/DL (3.4-5.0); ALBUMIN/GLOBULIN RATIO 0.8 (1.1-1.5); ALKALINE PHOSPHATASE 64 IU/L (46-116); ANION GAP 8 (8-16); ASPARTATE AMINO TRANSFERASE 8 U/L (10-37); BILIRUBIN,TOTAL 0.5 MG/DL (0.1-1.0); BLOOD UREA NITROGEN 18 MG/DL (7-18); BUN/CREATININE RATIO 14.6 (6.6-38.0); CALCIUM 8.8 MG/DL (8.5-10.1); CHLORIDE 103 MMOL/L (99-107); CREATININE 1.23 MG/DL (0.40-0.90); GLUCOSE 126 MG/DL (70-104); MAGNESIUM 2.2 MG/DL (1.5-2.4); POTASSIUM 3.7 MMOL/L (3.5-5.1); SODIUM 140 MMOL/L (135-145); TOTAL CARBON DIOXIDE 28.7 MMOL/L (24-32); TOTAL PROTEIN 6.9 G/DL (6.4-8.2); eGFR 44 ML/MIN
[2020-12-13] MEDS ORDERED: sulfamethoxazole/trimethoprim DS (800/160mg) tablet PO ONE (15:05)
[2020-12-13] MEDS ORDERED: CefTRIAXone 1000mg IM Kit (w/lidocaine diluent) IM ONE (15:05)
[2020-12-13] MEDS ORDERED: SULF1TAB49 PO (15:14)
[2020-12-13] MEDS ORDERED: CEPH-585 PO (15:14)
[2020-12-13 15:24] VITALS: BP 118/47
== END 2020-12-13 15:55 | disposition home or self-care (01) ==
LOC: ER 11:40
DX: S81.801A Unspecified open wound, right lower leg, initial encounter (principal); S81.802A Unspecified open wound, left lower leg, initial encounter; R53.1 Weakness; I48.91 Unspecified atrial fibrillation; I25.10 Atherosclerotic heart disease of native coronary artery without angina pectoris; I11.0 Hypertensive heart disease with heart failure; I50.9 Heart failure, unspecified; E78.00 Pure hypercholesterolemia, unspecified; I10 Essential (primary) hypertension; J44.9 Chronic obstructive pulmonary disease, unspecified; K21.9 Gastro-esophageal reflux disease without esophagitis; E11.9 Type 2 diabetes mellitus without complications; G89.29 Other chronic pain; Z90.49 Acquired absence of other specified parts of digestive tract; Z98.890 Other specified postprocedural states; Z88.5 Allergy status to narcotic agent; Z91.018 Allergy to other foods; Z88.8 Allergy status to other drugs, medicaments and biological substances; Z79.2 Long term (current) use of antibiotics; Z79.4 Long term (current) use of insulin; Z79.899 Other long term (current) drug therapy; X58.XXXA Exposure to other specified factors, initial encounter; Y93.89 Activity, other specified; Y92.89 Other specified places as the place of occurrence of the external cause; Y99.8 Other external cause status
CPT/HCPCS: 36415; 80053; 83605; 83735; 84145; 85025; 87040; 96372; 99284; J0696

== ENCOUNTER 2021-01-03 11:50 | Emergency (ER) | payer MEDICARE, MEDICAID ==
[~2021-01-03] VITALS: Ht 162.6 cm; Wt 70.5 kg
[2021-01-03] MEDS ORDERED: gentamicin 0.1% topical ointment 15gm TP STA (13:31)
[2021-01-03] MEDS ORDERED: LIDOcaine 4% (40 mg/ml) topical solution 50ml TP ONE (13:35)
[2021-01-03 13:45] LABS: BASOPHILS # (AUTO) 0.1 X10'3 (0-0.2); BASOPHILS % (AUTO) 0.8 % (0-1); EOSINOPHILS # (AUTO) 0.1 X10'3 (0-0.9); EOSINOPHILS % (AUTO) 0.6 % (0-6); HEMATOCRIT 34.6 % (35.0-45.0); HEMOGLOBIN 11.5 g/dl (12.0-16.0); LYMPHOCYTES # (AUTO) 1.4 X10'3 (1.1-4.8); LYMPHOCYTES % (AUTO) 14.7 % (21-51); MEAN CORPUSCULAR HEMOGLOBIN 31.8 PG (27.0-31.0); MEAN CORPUSCULAR HGB CONC 33.3 g/dL (33.0-36.5); MEAN CORPUSCULAR VOLUME 95.4 FL (78-98); MONOCYTES # (AUTO) 0.6 X10'3 (0-0.9); MONOCYTES % (AUTO) 6.1 % (2-12); NEUTROPHILS # (AUTO) 7.2 X10'3 (1.8-7.7); NEUTROPHILS % (AUTO) 77.8 % (42-75); PLATELET COUNT 356 X10'3 (140-440); RED BLOOD COUNT 3.63 X10'6 (4.20-5.60); RED CELL DISTRIBUTION WIDTH 16.2 % (11.5-14.5); WHITE BLOOD COUNT 9.2 X10'3 (4.5-11.0)
[2021-01-03 13:56] LABS: ALANINE AMINOTRANSFERASE 21 U/L (12-78); ALBUMIN 3.6 G/DL (3.4-5.0); ALBUMIN/GLOBULIN RATIO 0.9 (1.1-1.5); ALKALINE PHOSPHATASE 80 IU/L (46-116); ANION GAP 11 (8-16); ASPARTATE AMINO TRANSFERASE 20 U/L (10-37); BILIRUBIN,TOTAL 0.4 MG/DL (0.1-1.0); BLOOD UREA NITROGEN 19 MG/DL (7-18); BUN/CREATININE RATIO 14.2 (6.6-38.0); CALCIUM 8.8 MG/DL (8.5-10.1); CHLORIDE 103 MMOL/L (99-107); CREATININE 1.34 MG/DL (0.40-0.90); GLUCOSE 204 MG/DL (70-104); POTASSIUM 4.1 MMOL/L (3.5-5.1); SODIUM 140 MMOL/L (135-145); TOTAL PROTEIN 7.5 G/DL (6.4-8.2); eGFR 40 ML/MIN
[2021-01-03] MEDS ORDERED: HYDROcodone/acetaminophen 10/325mg tab PO ONE (14:15)
[2021-01-03] MEDS ORDERED: furosemide 10 MG/1 ML 10ml inj IV ONE (15:20)
[2021-01-03 16:14] VITALS: BP 172/87
== END 2021-01-03 17:06 | disposition home or self-care (01) ==
LOC: ER 11:51
DX: S81.802A Unspecified open wound, left lower leg, initial encounter (principal); S81.801A Unspecified open wound, right lower leg, initial encounter; I50.9 Heart failure, unspecified; E78.00 Pure hypercholesterolemia, unspecified; J44.9 Chronic obstructive pulmonary disease, unspecified; K21.9 Gastro-esophageal reflux disease without esophagitis; E11.9 Type 2 diabetes mellitus without complications; Z88.6 Allergy status to analgesic agent; Z88.5 Allergy status to narcotic agent; Z91.018 Allergy to other foods; X58.XXXA Exposure to other specified factors, initial encounter; Y93.89 Activity, other specified; Y92.89 Other specified places as the place of occurrence of the external cause; Y99.8 Other external cause status
CPT/HCPCS: 36415; 80053; 83735; 83880; 84484; 85025; 93005; 96374; 99284; J1940

== ENCOUNTER 2021-11-27 11:42 | Emergency (ER) | payer MEDICARE, MEDICAID ==
[~2021-11-27] VITALS: Ht 162.6 cm; Wt 68.2 kg
[~2021-11-27 11:42] MED LIST changes: -ACET-1008 PO; +ALBU17AE26 IH; +AMIO200T61 PO; -BACL10TA2 PO; +BUDE10.2 IH; -BUDE10.22 INH; +CARV12.545 PO; -CARV6.253 PO; -CLOP75TA34 PO; +DAPA5TAB PO; -DIPH25CA83 PO; -FURO20TA4 PO; +FURO40TA4 PO; +HYDR-3972 PO; -HYDR-4353 PO; -IPRA3AMP31 IH; -LINA5TAB4 PO; -LISI10TA27 PO; +LISI5TAB22 PO; -LORA10TA7 PO; -METF-438 PO; -NITR0.4T48 SL; +NITR1PAT68 TOP; -NOVLG; +NOVLG SQ; -OMEP-50 PO; +PANT20TA18 PO; -PANT40TA54 PO; -PRAV40TA PO; +VENL-191 PO; -VENL150C50 PO
[2021-11-27] MEDS ORDERED: normal saline 1000ML IV soln IVB ONE (12:05)
[2021-11-27 12:34] LABS: BASOPHILS # (AUTO) 0.1 X10'3 (0-0.2); BASOPHILS % (AUTO) 0.7 % (0-1); EOSINOPHILS # (AUTO) 0.1 X10'3 (0-0.9); EOSINOPHILS % (AUTO) 1.1 % (0-6); HEMATOCRIT 37.5 % (35.0-45.0); HEMOGLOBIN 11.9 g/dl (12.0-16.0); LYMPHOCYTES # (AUTO) 1.6 X10'3 (1.1-4.8); LYMPHOCYTES % (AUTO) 18.5 % (21-51); MEAN CORPUSCULAR HGB CONC 31.7 g/dL (33.0-36.5); MEAN CORPUSCULAR VOLUME 91.5 FL (78-98); MEAN PLATELET VOLUME 8.6 FL (7.4-10.4); MONOCYTES # (AUTO) 0.9 X10'3 (0-0.9); MONOCYTES % (AUTO) 9.7 % (2-12); NEUTROPHILS # (AUTO) 6.2 X10'3 (1.8-7.7); PLATELET COUNT 241 X10'3 (140-440); WHITE BLOOD COUNT 8.8 X10'3 (4.5-11.0)
[2021-11-27 13:32] LABS: ALANINE AMINOTRANSFERASE 30 U/L (12-78); ALBUMIN 3.4 G/DL (3.4-5.0); ALKALINE PHOSPHATASE 109 IU/L (46-116); ANION GAP 10 (8-16); ASPARTATE AMINO TRANSFERASE 20 U/L (10-37); BILIRUBIN,TOTAL 0.6 MG/DL (0.1-1.0); BLOOD UREA NITROGEN 24 MG/DL (7-18); BUN/CREATININE RATIO 17.8 (6.6-38.0); CALCIUM 8.2 MG/DL (8.5-10.1); CHLORIDE 103 MMOL/L (99-107); CREATININE 1.35 MG/DL (0.40-0.90); ETHANOL < 0.010 GM/DL (0.0-0.010); GLUCOSE 255 MG/DL (70-104); POTASSIUM 3.4 MMOL/L (3.5-5.1); SODIUM 142 MMOL/L (135-145); TOTAL CARBON DIOXIDE 28.9 MMOL/L (24-32); TOTAL PROTEIN 6.8 G/DL (6.4-8.2); eGFR 39 ML/MIN
[2021-11-27 13:35] LABS: ANISOCYTOSIS 2+; ELLIPTOCYTES 1+; PLATELET ESTIMATE NORMAL; SCHISTOCYTES FEW
[2021-11-27 13:36] LABS: BURR CELLS 1+
[2021-11-27 15:24] LABS: CLARITY,URINE CLEAR (Clear); COLOR,URINE YELLOW (Yellow); GLUCOSE, URINE >=1000 mg/dl (Neg); KETONES,URINE NEGATIVE (Neg); LEUKOCYTE ESTERASE ,URINE NEGATIVE (Neg); NITRITES, URINE NEGATIVE (Neg); OCCULT BLOOD,URINE NEGATIVE (Neg); PROTEIN,URINE 100 mg/dl (Neg)
[2021-11-27 15:26] LABS: UA COLLECTION TYPE NON-SPECIFIED
[2021-11-27 15:29] LABS: URINE AMPHETAMINE SCREEN NEGATIVE (Neg); URINE BARBITUATE SCREEN NEGATIVE (Neg); URINE BENZODIAZEPINES SCREEN NEGATIVE (Neg); URINE CANNABINOID SCREEN NEGATIVE (Neg); URINE COCAINE SCREEN NEGATIVE (Neg); URINE METHADONE SCREEN NEGATIVE (Neg); URINE OPIATE SCREEN NEGATIVE (Neg); URINE PHENCYCLIDINE SCREEN NEGATIVE (Neg)
[2021-11-27 15:30] LABS: HYALINE CASTS 0-3 /LPF (NEGATIVE); SQUAMOUS EPITHELIAL CELL,UR FEW /LPF (FEW)
[2021-11-27 15:31] LABS: BACTERIA,URINE 1+ /HPF (Neg); RBC,URINE 0-2 /HPF (0-2); WBC,URINE 0-4 /HPF (0-4)
[2021-11-27 16:06] VITALS: BP 103/68
== END 2021-11-27 16:08 | disposition home or self-care (01) ==
LOC: ER 11:43
DX: R53.1 Weakness (principal); R51.9 Headache, unspecified; M54.9 Dorsalgia, unspecified; R53.83 Other fatigue; I25.2 Old myocardial infarction; I48.91 Unspecified atrial fibrillation; I25.10 Atherosclerotic heart disease of native coronary artery without angina pectoris; I11.0 Hypertensive heart disease with heart failure; I50.9 Heart failure, unspecified; E78.00 Pure hypercholesterolemia, unspecified; J44.9 Chronic obstructive pulmonary disease, unspecified; K21.9 Gastro-esophageal reflux disease without esophagitis; E11.9 Type 2 diabetes mellitus without complications; G89.29 Other chronic pain; Z90.49 Acquired absence of other specified parts of digestive tract; Z95.5 Presence of coronary angioplasty implant and graft; Z98.82 Breast implant status; Z88.5 Allergy status to narcotic agent; Z88.6 Allergy status to analgesic agent; Z91.018 Allergy to other foods; Z79.4 Long term (current) use of insulin; Z79.899 Other long term (current) drug therapy; Z72.89 Other problems related to lifestyle
CPT/HCPCS: 36415; 70450; 71045; 80053; 80305; 80320; 81001; 82140; 85008; 85025; 93005; 96360; 99285; J7030

== ENCOUNTER 2022-07-28 11:40 | Emergency (ER) | payer MEDICARE, MEDICAID ==
[~2022-07-28] VITALS: Ht 163.8 cm; Wt 71.8 kg
[~2022-07-28 11:40] MED LIST changes: -ALBU17AE26 IH; +ALBU6.7H14 INH; +AMIO100T4 PO; -AMIO200T61 PO; +APIX5TAB3 PO; +BACL-11 PO; -BUDE10.2 IH; +BUDE10.2 INH; +CARV-50 PO; -CARV12.545 PO; +INSU100I31 SQ; -INSU100I31 SUBCUT; -NOVLG SQ; +PANT-47 PO; -PANT20TA18 PO
[2022-07-28 12:15] LABS: BASOPHILS # (AUTO) 0.1 X10'3 (0-0.2); BASOPHILS % (AUTO) 0.6 % (0-1); EOSINOPHILS # (AUTO) 0.1 X10'3 (0-0.9); EOSINOPHILS % (AUTO) 1.4 % (0-6); HEMOGLOBIN 11.3 g/dl (12.0-16.0); LYMPHOCYTES # (AUTO) 1.8 X10'3 (1.1-4.8); LYMPHOCYTES % (AUTO) 22.9 % (21-51); MEAN CORPUSCULAR HEMOGLOBIN 27.5 PG (27.0-31.0); MEAN CORPUSCULAR HGB CONC 31.3 g/dL (33.0-36.5); MEAN CORPUSCULAR VOLUME 87.8 FL (78-98); MEAN PLATELET VOLUME 8.7 FL (7.4-10.4); MONOCYTES # (AUTO) 0.7 X10'3 (0-0.9); MONOCYTES % (AUTO) 8.4 % (2-12); NEUTROPHILS # (AUTO) 5.2 X10'3 (1.8-7.7); NEUTROPHILS % (AUTO) 66.7 % (42-75); PLATELET COUNT 267 X10'3 (140-440); RED BLOOD COUNT 4.11 X10'6 (4.20-5.60); RED CELL DISTRIBUTION WIDTH 17.8 % (11.5-14.5); WHITE BLOOD COUNT 7.8 X10'3 (4.5-11.0)
[2022-07-28 13:03] VITALS: BP 159/65
[2022-07-28 13:16] LABS: ALANINE AMINOTRANSFERASE 23 U/L (12-78); ALBUMIN 3.4 G/DL (3.4-5.0); ALBUMIN/GLOBULIN RATIO 0.8 (1.1-1.5); ALKALINE PHOSPHATASE 97 IU/L (46-116); ANION GAP 10 (8-16); ASPARTATE AMINO TRANSFERASE 30 U/L (10-37); BILIRUBIN,TOTAL 0.8 MG/DL (0.1-1.0); BLOOD UREA NITROGEN 28 MG/DL (7-18); BUN/CREATININE RATIO 22.2 (6.6-38.0); CHLORIDE 99 MMOL/L (99-107); CREATININE 1.26 MG/DL (0.40-0.90); GLUCOSE 243 MG/DL (70-104); MAGNESIUM 2.2 MG/DL (1.5-2.4); SODIUM 134 MMOL/L (135-145); TOTAL CARBON DIOXIDE 25.4 MMOL/L (24-32); TOTAL PROTEIN 7.5 G/DL (6.4-8.2); eGFR 42 ML/MIN
[2022-07-28 13:17] LABS: POTASSIUM 4.6 MMOL/L (3.5-5.1)
== END 2022-07-28 20:45 | disposition left against medical advice (07) ==
LOC: ER 11:42
DX: R06.02 Shortness of breath (principal); Z53.21 Procedure and treatment not carried out due to patient leaving prior to being seen by health care provider
CPT/HCPCS: 36415; 71045; 80053; 83735; 83880; 84484; 85025; 93005

== ENCOUNTER 2022-08-29 20:30 | Outpatient (CLI) | payer MEDICARE, MEDICAID ==
[~2022-08-29 20:30] MED LIST changes: -AMIO100T4 PO; -BACL-11 PO; +DILT60TA3 PO; +DOCU100C40 PO; +LISI2.5T14 PO; -LISI5TAB22 PO
[2022-08-29 21:10] LABS: BASOPHILS # (AUTO) 0.1 X10'3 (0-0.2); BASOPHILS % (AUTO) 0.6 % (0-1); EOSINOPHILS # (AUTO) 0.3 X10'3 (0-0.9); EOSINOPHILS % (AUTO) 1.8 % (0-6); HEMATOCRIT 34.3 % (35.0-45.0); HEMOGLOBIN 10.8 g/dl (12.0-16.0); LYMPHOCYTES # (AUTO) 2.7 X10'3 (1.1-4.8); LYMPHOCYTES % (AUTO) 14.8 % (21-51); MEAN CORPUSCULAR HEMOGLOBIN 27.5 PG (27.0-31.0); MEAN CORPUSCULAR HGB CONC 31.3 g/dL (33.0-36.5); MEAN CORPUSCULAR VOLUME 87.9 FL (78-98); MEAN PLATELET VOLUME 8.4 FL (7.4-10.4); MONOCYTES # (AUTO) 0.8 X10'3 (0-0.9); MONOCYTES % (AUTO) 4.3 % (2-12); NEUTROPHILS # (AUTO) 14.1 X10'3 (1.8-7.7); NEUTROPHILS % (AUTO) 78.5 % (42-75); PLATELET COUNT 235 X10'3 (140-440); RED CELL DISTRIBUTION WIDTH 21.7 % (11.5-14.5)
[2022-08-29 21:31] LABS: ALANINE AMINOTRANSFERASE 33 U/L (12-78); ALBUMIN 2.6 G/DL (3.4-5.0); ALBUMIN/GLOBULIN RATIO 0.9 (1.1-1.5); ALKALINE PHOSPHATASE 119 IU/L (46-116); ANION GAP 6 (8-16); ASPARTATE AMINO TRANSFERASE 20 U/L (10-37); BILIRUBIN,TOTAL 0.5 MG/DL (0.1-1.0); BLOOD UREA NITROGEN 28 MG/DL (7-18); CALCIUM 8.3 MG/DL (8.5-10.1); CHLORIDE 96 MMOL/L (99-107); CREATININE 1.22 MG/DL (0.40-0.90); GLUCOSE 95 MG/DL (70-104); MAGNESIUM 1.9 MG/DL (1.5-2.4); PHOSPHORUS 3.5 MG/DL (2.3-4.5); POTASSIUM 4.2 MMOL/L (3.5-5.1); SODIUM 137 MMOL/L (135-145); TOTAL PROTEIN 5.5 G/DL (6.4-8.2); eGFR 44 ML/MIN
[2022-08-29 22:32] LABS: TOTAL CELLS COUNTED 100
[2022-08-29 22:33] LABS: ANISOCYTOSIS 3+; PLATELET ESTIMATE NORMAL; TARGET CELLS FEW
== END 2022-08-29 23:59 | disposition home or self-care (01) ==
LOC: LAB SPEC 20:30
PROVIDERS: ATTEND Family Medicine
DX: N18.30 Chronic kidney disease, stage 3 unspecified (principal); E11.9 Type 2 diabetes mellitus without complications; Z79.899 Other long term (current) drug therapy
CPT/HCPCS: 36415; 80053; 83735; 84100; 85007; 85025